=== PATIENT | male | born 1960 | race Caucasian/White ===

== ENCOUNTER 2018-12-25 20:22 | Observation (INO) | payer BC, OTHER ==
--- OUTSIDE RECORDS SUMMARY | 2018-12-25 20:23 | XMS REPORT ---
:1960 Author Organization eClinicalWorks Care Team Providers Name Role Phone Dony Langfordh Provider Role Unavailable Allergies, Adverse Reactions, Alerts Substance Reaction Event Type N.K.D.A. 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 Problem Herpes labialis B00.1 Active Problem Gastro-esophageal reflux disease K21.9 Active without esophagitis Problem Schatzki's ring Q39.4 Active Problem Asthma J45.909 Active Problem Allergic rhinitis, seasonal J30.2 Active Problem Ventral hernia K43.9 Active Problem Hyperlipidemia, mixed E78.2 Active Problem Inguinal hernia recurrent K40.91 Active unilateral Assessment Elevated BP without diagnosis of R03.0 Active hypertension Assessment Herpes labialis B00.1 Active Assessment Asthma J45.909 Active Assessment Esophageal hiatus hernia K44.9 Active Assessment Hyperlipidemia, mixed E78.2 Active Assessment Gastro-esophageal reflux disease K21.9 Active without esophagitis Medications Medication Code Code Instructions Start End Status Dosage System Date Date Symbicort [facility] [id number] 160-4.5 MCG/ACT Active 2 puffs Inhalation Twice a day Vitamin C [facility] [id number] Active not defined Centrum Men [facility] [id number] Active not defined Ventolin HFA [facility] [id number] 90 MCG/ACT Active 2 puffs as Inhalation every needed 6 hrs Results No Known Results Summary Purpose eClinicalWorks Submission
--- NOTE | 2018-12-25 20:56 | RAD REPORT ---
EXAM DESCRIPTION: CT - Head Brain Wo Cont - 12/25/2018 8:41 pm CLINICAL HISTORY: Left-sided facial numbness COMPARISON: None. TECHNIQUE: Axial 5 mm thick images of the head were obtained without IV contrast. All CT scans are performed using dose optimization technique as appropriate and may include automated exposure control or mA/KV adjustment according to patient size. FINDINGS: No intracranial hemorrhage, mass, edema or shift of mid-line structures. No acute infarcti on changes seen. No abnormal extra-axial fluid collections. Ventricles are normal. Mastoid air cells and visualized portions of the paranasal sinuses are clear. No acute bony findings. Postsurgical changes are noted to the right-sided skull. No history provided as to the nature of the injury or surgical procedure performed. IMPRESSION: Negative non-contrast CT head examination for acute intracranial finding. Postsurgical changes to the lateral stall frontal parietal junction. No underlying changes of the bra in parenchyma. Reason for the procedure performed is unknown.
[2018-12-25 21:54] LABS: Absolute Lymphocytes (CBC) 1.4 K/uL (0.7-4.9); Absolute Monocytes 0.7 K/uL (0.1-1.3); Absolute Neutrophil 3.7 K/uL (1.8-8.0); Basophils % 0.9 % (0-1.3); Eosinophils % 3.5 % (0-4.4); Hematocrit 43.1 % (39.6-49.0); Lymphocytes % 22.9 % (15.3-44.8); MPV 8.1 fL (7.6-11.3); Monocytes % 11.8 % (3.3-12.3); RBC Red Blood Cell Count 5.06 M/uL (4.33-5.43)
[2018-12-25 22:13] LABS: Protime INR 1.36
[2018-12-25 22:26] LABS: ALT/SGPT 27 U/L (12-78); AST/SGOT 16 U/L (15-37); Albumin 3.7 g/dL (3.4-5.0); Alkaline Phosphatase 75 U/L (45-117); BUN Blood Urea Nitrogen 11 mg/dL (7-18); Bicarbonate 27 mmol/L (21-32); Bilirubin Direct 0.1 mg/dL (0-0.2); Bilirubin Total 0.4 mg/dL (0.2-1.0); Glucose Level 110 mg/dL (74-106); Magnesium 2.4 mg/dL (1.8-2.4); NT PRO-BNP 24 pg/mL (<125); Potassium 3.2 mmol/L (3.5-5.1); Protein, Total 7.2 g/dL (6.4-8.2); Sodium Level 141 mmol/L (136-145); Troponin (Emerg Dept Use Only) < 0.02 ng/mL (0.0-0.045)
[2018-12-25] MEDS ORDERED: POTASSIUM CL SA 10 MEQ TAB PO ONE (23:11)
--- NOTE | 2018-12-26 00:50 | ER ---
Nurse's Notes [facility] Name: Ashwin Engel Age: 58 yrs Sex: Male : 1960 Arrival Date: 12/25/2018 Time: 20:23 Bed 24 Private MD: Diagnosis: Transient cerebral ischemic attack, unspecified Presentation: 12/25 20:25 Presenting complaint: Patient states: he has been having some numbness to the L side of aa1 his face that started around 1000 am this morning. 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 Denies any other deficits or symptoms. Transition of care: patient was not received from another setting of care. Onset of symptoms was December 25, 2018 at 10:00. Risk Assessment: Do you want to hurt yourself or someone else? Patient reports no desire to harm self or others. Initial Sepsis Screen: Does the patient meet any 2 criteria? No. Patient's initial sepsis screen is negative. Does the patient have a suspected source of infection? No. Patient's initial sepsis screen is negative. Care prior to arrival: None. 20:25 Method Of Arrival: Ambulatory aa1 20:25 Acuity: CAESAR 2 aa1 Triage Assessment: 20:29 General: Appears in no apparent distress. comfortable, Behavior is calm, cooperative, aa1 appropriate for age. Pain: Denies pain. 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 - Social history:: Smoking status: Patient/guardian denies using tobacco. - Ebola Screening: : No symptoms or risks identified at this time. Screenin:31 Abuse screen: Denies threats or abuse. Denies injuries from another. Nutritional aj screening: No deficits noted. Tuberculosis screening: No symptoms or risk factors identified. Fall Risk None identified. Assessment: 20:56 General: Appears in no apparent distress. comfortable, Behavior is calm, cooperative, aj appropriate for age. Neuro: Level of Consciousness is awake, alert, obeys commands, Oriented to person, place, time, situation, Appropriate for age Cab Station Attendant are equal bilaterally Moves all extremities. Full function Gait is steady, Speech Appears slow. some droop around left eye. Pupils are Numbness in left cheek, left eye and left zygomatic area Reports headache. Respiratory: Airway is patent Respiratory effort is even, unlabored, Respiratory pattern is regular, symmetrical. Derm: Skin is intact, is healthy with good turgor, Skin is pink, warm \T\ dry. normal. 22:20 Reassessment: Patient appears in no apparent distress at this time. Patient and/or ao family updated on plan of care and expected duration. Pain level reassessed. Patient is alert, oriented x 3, equal unlabored respirations, skin warm/dry/pink. Patient under no distress. Pt AOX4. 12/26 00:47 Reassessment: Per ANTON Marshall patient to stay in the hospital with a consult with Dr javier Zuñiga. ANTON Marshall has spoken to Dr Zuñiga. 00:49 Reassessment: Patient appears in no apparent distress at this time. Patient and/or ao family updated on plan of care and expected duration. Pain level reassessed. Patient is alert, oriented x 3, equal unlabored respirations, skin warm/dry/pink. Vital Signs: 12/25 20:29 BP 156 / 102; Pulse 86; Resp 16; Temp 97.8; Pulse Ox 95% on R/A; Weight 90.72 kg; aa1 Height 5 ft. 11 in. (180.34 cm); Pain 0/10; 21:57 BP 144 / 100; Pulse 65; Resp 19; Pulse Ox 97% on R/A; aj 12/26 00:46 BP 131 / 91; Pulse 64; Resp 16; Temp 97.6(O); Pulse Ox 97% on R/A; ao 01:42 BP 147 / 102; Pulse 68; Resp 16; Pulse Ox 99% on R/A; ao 12/25 20:29 Body Mass Index 27.89 (90.72 kg, 180.34 cm) aa1 NIH Stroke Scale Scores: 12/25 22:22 NIHSS Score: 1 jr8 ED Course: 20:23 Patient arrived in ED. mr 20:27 Triage completed. aa1 20:29 Arm band placed on left wrist. Patient placed in an exam room, on a stretcher. aa1 20:32 Iveth Pedraza, RN is Primary Nurse. aj 20:[address] vm2 20:41 CT Head Brain wo Cont In Process Unspecified. EDMS 20:41 CT completed. Patient tolerated procedure well. Patient moved back from CT. nj 20:50 Rolando Asher PA is PHCP. jr8 20:51 Johnathan Barbosa MD is Attending Physician. jr8 21:18 Radiology exam delayed due to lab results not completed at this time. (BUN/Creatinine). vm2 21:31 Patient has correct armband on for positive identification. awake overnight monitor on. Pulse aj ox on. NIBP on. 21:31 Inserted saline lock: 18 gauge in right forearm, using aseptic technique. Blood aj collected. 21:53 Basic Metabolic Panel Sent. aj 21:54 CBC with Diff Sent. aj 21:54 LFT's Sent. aj 21:54 Magnesium Sent. aj 21:54 NT PRO-BNP Sent. aj 21:54 PT-INR Sent. aj 22:[address] vm2 22:[address] In Process Unspecified. EDMS 05 00:49 Jenny Daniels MD is Hospitalizing Provider. jr8 01:58 No provider procedures requiring assistance completed. Patient admitted, IV remains in ao place. Administered Medications: 12/25 23:03 Drug: Potassium Chloride 40 mEq Route: PO; ao 12/26 01:57 Follow up: Response: No adverse reaction ao 00:54 Drug: Aspirin 81 mg Route: PO; ao 01:57 Follow up: Response: No adverse reaction ao 00:54 Drug: PlaVIX 75 mg Route: PO; ao 01:56 Follow up: Response: No adverse reaction ao Outcome: 00:50 Decision to Hospitalize by Provider. jr8 01:58 Admitted to Tele accompanied by nurse, room 421, with chart, Report called to javier Brosusard RN 01:58 Condition: stable 01:58 Instructed on the need for admit. 02:13 Patient left the ED. ao NIH Stroke Scale - NIH Stroke Score Date: 12/25/2018 Time: 22:22 Total Score = 1 1a. Level of Consciousness (LOC) - 0(Alert) 1b. Level of Consciousness (LOC) (Year \T\ Age) - 0(Both) 1c. LOC Commands (Open \T\ Closes Eyes/Cashier Or Checker Stock Clerk) - 0(Both) 2. Best Gaze (Lateral Gaze Paresis) - 0(Normal) 3. Visual Field Loss - 0(No visual loss) 4. Facial Palsy - 0(Normal) 5a. Left Arm: Motor (10-second hold) - 0(No drift) 5b. Right Arm: Motor (10-second hold) - 0(No drift) 6a. Left Leg: Motor (5-second hold - always test supine) - 0(No drift) 6b. Right Leg: Motor (5-second hold - always test supine) - 0(No drift) 7. Limb Ataxia (finger/nose \T\ heel/queen - test with eyes open) - 0(Absent) 8. Sensory Loss (pinprick arms/legs/face) - 1(Mild to moderate loss) 9. Best Language: Aphasia (description/naming/reading) - 0(No aphasia) 10. Dysarthria (speech clarity - read or repeat words) - 0(Normal) 11. Extinction and Inattention (visual/tactile/auditory/spatial/personal) - 0(No abnormality) Initials: jr8 Signatures: Dispatcher [employer] Brenda Hope RN RN aa1 Myers, Amanda, RN RN aj Rivera, Shannen Asher, ANTON Marshall jr8 Wilber Shaw RN RN ao Jordan, Pavel burrows SaucedaTila aguilar [facility]
--- NOTE | 2018-12-26 00:50 | EDPHYS ---
Physician Documentation [facility] Name: Ashwin Engel Age: 58 yrs Sex: Male : 1960 Arrival Date: 12/25/2018 Time: 20:23 Bed 24 Private MD: ED Physician Johnathan Barbosa HPI: 12/25 22:22 This 58 yrs old Male presents to ER via Ambulatory with complaints of jr8 Numbness Of Face. 22:22 The patient presents to the emergency department with paresthesias of the left side of jr8 the face, that is mild. Onset: The symptoms/episode began/occurred acutely, today, at 10:00. Context: occurred at home, occurred while the patient was at rest. Associated signs and symptoms: Pertinent positives: headache. Severity of symptoms: At their worst the symptoms were mild in the emergency department the symptoms are unchanged. Patient's baseline: Neuro: alert and fully oriented, Motor: no deficits, Ambulation: walks without assistance, Speech: normal. Current symptoms: headache, that is mild. It is unknown whether or not the patient has had similar symptoms in the past. The patient has not recently seen a physician. Patient stated that he feels like he is in a fog and slow. Started to feel numbness to left face and odd feeling in left arm. Headache behind eyes. History of bells palsy in past but stated that this feels different. . 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 - Social history:: Smoking status: Patient/guardian denies using tobacco. - Ebola Screening: : No symptoms or risks identified at this time. ROS: 22:22 Eyes: Negative for injury, pain, redness, and discharge, ENT: Negative for injury, jr8 pain, and discharge, Neck: Negative for injury, pain, and swelling, Cardiovascular: Negative for chest pain, palpitations, and edema, Respiratory: Negative for shortness of breath, cough, wheezing, and pleuritic chest pain, Abdomen/GI: Negative for abdominal pain, nausea, vomiting, diarrhea, and constipation, Back: Negative for injury and pain, MS/Extremity: Negative for injury and deformity, Skin: Negative for injury, rash, and discoloration. 22:22 Neuro: Positive for headache, numbness, speech changes. Exam: 22:22 Eyes: Pupils equal round and reactive to light, extra-ocular motions intact. Lids and jr8 lashes normal. Conjunctiva and sclera are non-icteric and not injected. Cornea within normal limits. Periorbital areas with no swelling, redness, or edema. ENT: Nares patent. No nasal discharge, no septal abnormalities noted. Tympanic membranes are normal and external auditory canals are clear. Oropharynx with no redness, swelling, or masses, exudates, or evidence of obstruction, uvula midline. Mucous membranes moist. Neck: Trachea midline, no thyromegaly or masses palpated, and no cervical lymphadenopathy. Supple, full range of motion without nuchal rigidity, or vertebral point tenderness. No Meningismus. Cardiovascular: Regular rate and rhythm with a normal S1 and S2. No gallops, murmurs, or rubs. Normal PMI, no JVD. No pulse deficits. Respiratory: Lungs have equal breath sounds bilaterally, clear to auscultation and percussion. No rales, rhonchi or wheezes noted. No increased work of breathing, no retractions or nasal flaring. Abdomen/GI: Soft, non-tender, with normal bowel sounds. No distension or tympany. No guarding or rebound. No evidence of tenderness throughout. Back: No spinal tenderness. No costovertebral tenderness. Full range of motion. Skin: Warm, dry with normal turgor. Normal color with no rashes, no lesions, and no evidence of cellulitis. MS/ Extremity: Pulses equal, no cyanosis. Neurovascular intact. Full, normal range of motion. 22:22 Neuro: Orientation: to person, place \T\ time. Mentation: is normal, Memory: is normal, immediate memory is intact, recent memory is intact, remote memory is intact, Cranial nerves: CN I not tested, CN II- XII are normal as tested, extraocular movements are intact, Facial palsy and sensory deficits are absent. no gross hearing deficit,. Nystagmus is absent. Speech is slowed, Tongue strength is normal, Cerebellar function: normal finger to nose testing, heel to queen testing is normal, Motor: moves all fours, strength is normal, strength is 5/5 in all extremities, Sensation: numbness, that is mild, of the left face, Gait: is steady, at a normal pace, without difficulty, seizure activity, is not displayed by the patient, Abnormal movements: there are no abnormal movements. Vital Signs: 20:29 BP 156 / 102; Pulse 86; Resp 16; Temp 97.8; Pulse Ox 95% on R/A; Weight 90.72 kg; aa1 Height 5 ft. 11 in. (180.34 cm); Pain 0/10; 21:57 BP 144 / 100; Pulse 65; Resp 19; Pulse Ox 97% on R/A; aj 12/26 00:46 BP 131 / 91; Pulse 64; Resp 16; Temp 97.6(O); Pulse Ox 97% on R/A; ao 01:42 BP 147 / 102; Pulse 68; Resp 16; Pulse Ox 99% on R/A; ao 12/25 20:29 Body Mass Index 27.89 (90.72 kg, 180.34 cm) aa1 NIH Stroke Scale Scores: 12/25 22:22 NIHSS Score: 1 [facility] MDM: 20:53 Patient medically screened. 12/26 00:49 Data reviewed: vital signs, nurses notes, lab test result(s), EKG, radiologic studies, [facility] CT scan. Data interpreted: Pulse oximetry: on room air is 97 %. Interpretation: normal. Counseling: I had a detailed discussion with the patient and/or guardian regarding: the historical points, exam findings, and any diagnostic results supporting the discharge/admit diagnosis, lab results, radiology results, the need for further work-up and treatment in the hospital. Physician consultation: Jenny Daniels MD was called at 00:49, was contacted at 00:49, regarding admission, to the telemetry unit. consult, patient's condition, and will see patient. 12/25 21:13 Order name: Basic Metabolic Panel [facility] 12/25 21:13 Order name: CBC with Diff; Complete Time: 22:06 [facility] 12/25 21:13 Order name: LFT's; Complete Time: 22:29 [facility] 12/25 21:13 Order name: Magnesium; Complete Time: 22:29 [facility] 12/25 21:13 Order name: NT PRO-BNP; Complete Time: 22:29 [facility] 12/25 21:13 Order name: PT-INR; Complete Time: 22:41 [facility] 12/25 20:30 Order name: CT Head Brain wo Cont; Complete Time: 21:13 aa1 12/25 21:13 Order name: Troponin (emerg Dept Use Only); Complete Time: 22:29 [facility] 12/25 21:14 Order name: Basic Metabolic Panel; Complete Time: 22:29 [facility] 12/25 21:14 Order name: Head Angio CT [facility] 12/26 01:16 Order name: Comprehensive Metabolic Panel [facility] 12/26 01:16 Order name: Lipid Profile [facility] 12/26 01:16 Order name: Magnesium [facility] 12/26 01:16 Order name: CBC with Automated Diff [facility] 12/25 21:13 Order name: EKG; Complete Time: 21:14 [facility] 12/25 21:13 Order name: Cardiac monitoring; Complete Time: 21:31 [facility] 12/25 21:13 Order name: EKG - Nurse/Tech; Complete Time: 21:53 [facility] 12/25 21:13 Order name: IV Saline Lock; Complete Time: 21:31 [facility] 12/25 21:13 Order name: Labs collected and sent; Complete Time: 21:53 [facility] 12/25 21:13 Order name: O2 Per Protocol; Complete Time: 21:53 [facility] 12/25 21:13 Order name: O2 Sat Monitoring; Complete Time: 21:53 [facility] 12/26 01:16 Order name: Physical Therapy Consult [facility] 12/26 01:16 Order name: Speech Therapy Consult [facility] 12/26 01:16 Order name: Echo with Doppler [facility] 12/26 01:16 Order name: EKG Electrocardiogram [facility] 12/26 01:16 Order name: Stroke Protocol [facility] 12/26 01:16 Order name: Chest Pa And Lat (2 Views) [facility] Administered Medications: 12/25 23:03 Drug: Potassium Chloride 40 mEq Route: PO; ao 12/26 01:57 Follow up: Response: No adverse reaction ao 00:54 Drug: Aspirin 81 mg Route: PO; ao 01:57 Follow up: Response: No adverse reaction ao 00:54 Drug: PlaVIX 75 mg Route: PO; ao 01:56 Follow up: Response: No adverse reaction ao Disposition: 02:58 Co-signature as Attending Physician, Johnathan Barbosa MD. pkl Disposition: 12/26/18 00:50 Hospitalization ordered by Jenny Daniels for Observation. Preliminary diagnosis is Transient cerebral ischemic attack, unspecified. - Bed requested for Telemetry/MedSurg (observation). - Status is Observation. ao - Condition is Stable. - Problem is new. - Symptoms have improved. UTI on Admission? No NIH Stroke Scale - NIH Stroke Score Date: 12/25/2018 Time: 22:22 Total Score = 1 1a. Level of Consciousness (LOC) - 0(Alert) 1b. Level of Consciousness (LOC) (Year \T\ Age) - 0(Both) 1c. LOC Commands (Open \T\ Closes Eyes/Call Center Coordinator) - 0(Both) 2. Best Gaze (Lateral Gaze Paresis) - 0(Normal) 3. Visual Field Loss - 0(No visual loss) 4. Facial Palsy - 0(Normal) 5a. Left Arm: Motor (10-second hold) - 0(No drift) 5b. Right Arm: Motor (10-second hold) - 0(No drift) 6a. Left Leg: Motor (5-second hold - always test supine) - 0(No drift) 6b. Right Leg: Motor (5-second hold - always test supine) - 0(No drift) 7. Limb Ataxia (finger/nose \T\ heel/queen - test with eyes open) - 0(Absent) 8. Sensory Loss (pinprick arms/legs/face) - 1(Mild to moderate loss) 9. Best Language: Aphasia (description/naming/reading) - 0(No aphasia) 10. Dysarthria (speech clarity - read or repeat words) - 0(Normal) 11. Extinction and Inattention (visual/tactile/auditory/spatial/personal) - 0(No abnormality) Initials: jrEnrique Signatures: Dispatcher [employer] Brenda Hope RN RN aa1 Johnathan Barbosa MD MD pkRolando Joseph PA PA jr8 Irasema Ann RN RN cg Ortiz, Alex RN RN ao Corrections: (The following items were deleted from the chart) 01:32 00:50 Hospitalization Ordered by Jenny Daniels MD for Observation. Preliminary cg diagnosis is Transient cerebral ischemic attack, unspecified. Bed requested for Telemetry/MedSurg (observation). Status is Observation. Condition is Stable. Problem is new. Symptoms have improved. UTI on Admission? No. jr8 02:13 01:32 12/26/2018 00:50 Hospitalization Ordered by Jenny Daniels MD for ao Observation. Preliminary diagnosis is Transient cerebral ischemic attack, unspecified. Bed requested for Telemetry/MedSurg (observation). Status is Observation. Condition is Stable. Problem is new. Symptoms have improved. UTI on Admission? No. cg
[2018-12-26] MEDS ORDERED: ASPIRIN 81 MG CHEWABLE TABLET ONE (01:05)
[2018-12-26] MEDS ORDERED: CLOPIDOGREL 75 MG TABLET ONE (01:05)
[2018-12-26] MEDS ORDERED: ACETAMINOPHEN 500 MG TAB PO PRN (01:10)
[2018-12-26] MEDS ORDERED: ONDANSETRON 4 MG/2 ML VIAL IV PRN (01:10)
[2018-12-26] MEDS ORDERED: NA CHLORIDE 0.9% 1,000 ML IV SCH (02:00)
[2018-12-26 04:33] LABS: Urine Appearance CLEAR; Urine Bilirubin NEGATIVE (NEG); Urine Blood NEGATIVE (NEG); Urine Color YELLOW; Urine Glucose NEGATIVE (NEG); Urine Protein NEGATIVE (NEG); Urine Specific Gravity >=1.030 (1.005-1.030); Urine Urobilinogen 0.2 mg/dL (0.2-1.0); Urine pH 5.5 (5.0-7.0)
[2018-12-26 04:39] LABS: Urine Microscopic Reflex NO UMIC
[2018-12-26 05:51] LABS: Absolute Lymphocytes (CBC) 1.1 K/uL (0.7-4.9); Absolute Monocytes 0.7 K/uL (0.1-1.3); Absolute Neutrophil 2.9 K/uL (1.8-8.0); Basophils % 0.8 % (0-1.3); Eosinophils % 4.4 % (0-4.4); Lymphocytes % 22.1 % (15.3-44.8); MPV 7.8 fL (7.6-11.3); RBC Red Blood Cell Count 4.96 M/uL (4.33-5.43)
[2018-12-26 05:55] LABS: Albumin 3.6 g/dL (3.4-5.0); Bilirubin Total 0.4 mg/dL (0.2-1.0); Magnesium 2.4 mg/dL (1.8-2.4); Potassium 4.7 mmol/L (3.5-5.1); Protein, Total 6.7 g/dL (6.4-8.2)
--- NOTE | 2018-12-26 06:06 | EKG ---
Test Date: 2018-12-25 Test Time: 21:38:32 [employer]: [employer] MEASUREMENT RESULTS: Intervals: Rate: 63 CT: 156 QRSD: 84 QT: 380 QTc: 388 [place]: P: 36 CT: 156 QRS: -2 T: 57 INTERPRETIVE STATEMENTS: Normal sinus rhythm Normal ECG Compared to ECG 02/25/2013 19:03:10 Sinus arrhythmia no longer present Electronically Signed On 12-26-18 06:05:34 CDT by Hossein Martell
--- NOTE | 2018-12-26 08:34 | RAD REPORT ---
EXAM DESCRIPTION: MRI - Brain W/Wo Cont - 12/26/2018 8:17 am CLINICAL HISTORY: Slurred speech, left-sided facial numbness, left arm weakness and numbness, stroke -like symptoms COMPARISON: CT imaging December 25 TECHNIQUE: Sagittal and axial T1-weighted images were obtained. Axial PD/heavily T2-weighted and T2- FLAIR images were obtained along with axial DWI/ADC mapping sequences. Coronal heavily T2 weighted s equence obtained. Axial and coronal post-contrast T1-weighted images were also obtained. A 17 ml Mul tihance contrast following utilized. FINDINGS: No intracranial hemorrhage, mass or acute infarction. There is no edema or shift of midli ne structures. No extra-axial fluid collections. Arnold-matter/white matter junction is preserved. Sig nal voids are seen as a normal finding in the major intracranial vessels. A few punctate areas of chr onic ischemic change noted scattered in the cerebral white matter. No measurable atrophy. Ventricles are normal. No globe or orbital content abnormality identified. No sella or supra sella abnormality. Post-contrast images show normal enhancement. No dural thickening. Mastoid air cells and paranasal sinuses are clear. No acute bone finding. There are postsurgical changes in the superior right frontal and parietal bone junction. Nature of the surgical procedure is unknown. Underlying brain parenchyma and dura show no suspicious or unexpected findings. IMPRESSION: No infarction changes are present. No acute intracranial process seen. Minimal chronic ischemic change in the cerebral white matter.
--- NOTE | 2018-12-26 08:37 | RAD REPORT ---
EXAM DESCRIPTION: MRI - MRA Head Wo Cont - 12/26/2018 8:16 am CLINICAL HISTORY: Left face and arm numbness and weakness, stroke-like symptoms COMPARISON: MR brain same date TECHNIQUE: Axial and coronal 3D [id number] image acquisition was performed. 3D rotational images were generated with source and reconstruction images reviewed. Maximum intensity projection protocol utilized. Horizontal and vertical axis rotational views generated using MIP protocol. FINDINGS: No aneurysm or vascular malformation. No stenosis or occlusion identifiable. There are no vasculitis findings or other focal or diffuse vascular process. Patient has normal variant persistent origin of the right posterior cerebral artery basilar artery is normal. IMPRESSION: MRA Head imaging shows no significant or suspicious finding.
--- NOTE | 2018-12-26 08:40 | RAD REPORT ---
EXAM DESCRIPTION: MRI - MRA Neck W/Wo Cont - 12/26/2018 8:17 am CLINICAL HISTORY: Left-sided face and arm weakness, stroke-like symptoms COMPARISON: MRI brain same date TECHNIQUE: MR angiography of the cervical vasculature performed. Coronal imaging plane acquisition u tilized. A 17 mL MultiHance contrast volume was utilized. Coronal reformatted images were generated a nd reviewed. Vertical axis 3D rotational projections obtained using maximum intensity projection prot ocol. FINDINGS: Aortic arch is 3 vessel. No stenosis or focal abnormality at the great vessel origins. Iftikhar tebral artery origins are also unremarkable. Left vertebral artery is dominant. Bilateral subclavian arteries are clear. No dissection or stenosis of either common carotid artery. Internal carotid arteries are also without stenosis, dissection or focal abnormality. No vascular malformation. IMPRESSION: Negative MRA neck examination.
--- NOTE | 2018-12-26 08:46 | RAD REPORT ---
EXAM DESCRIPTION: RAD - Chest Pa And Lat (2 Views) - 12/26/2018 8:40 am CLINICAL HISTORY: Shortness of breath, Stroke protocol chest film COMPARISON: August 2015 TECHNIQUE: PA and lateral views of the chest were obtained. FINDINGS: The lungs are clear of focal infiltrate, mass, failure or volume overload. Patient has a m ild chronic interstitial pattern that matches comparison. Heart size is normal and central vasculat ure is within normal limits. No pleural effusion or pneumothorax seen. No acute bony finding noted. No aortic abnormality. IMPRESSION: No acute cardiopulmonary process. Chronic interstitial lung pattern matches comparison.
[2018-12-26] MEDS ORDERED: PANTOPRAZOLE 40MG TABLET PO SCH (09:00)
[2018-12-26] MEDS ORDERED: ASPIRIN EC 81 MG TAB PO SCH (09:00)
[2018-12-26] MEDS ORDERED: CLOPIDOGREL 75 MG TABLET PO SCH (09:00)
[2018-12-26] MEDS ORDERED: HOME MED 1 EA UNK (Budesonide/Formoterol Fumarate [Symbicort 160-4.5 Mcg Inhaler] 1 PUFF) IH SCH (09:00)
[2018-12-26] MEDS ORDERED: ASCORBIC ACID 500 MG TABLET PO SCH (09:00)
[2018-12-26] MEDS ORDERED: MULTIVIT W/ MINERAL TAB PO SCH (09:00)
--- NOTE | 2018-12-26 10:47 | RAD REPORT ---
EXAM DESCRIPTION: CT - Head angio - 12/26/2018 2:20 am CLINICAL HISTORY: Orbital pain. Numbness. TECHNIQUE: Following the administration of intravenous contrast, thin section axial CT angiography i mages of the head were obtained. Coronal and sagittal reformatted images were generated. This exa m was performed according to our departmental dose-optimization program, which includes automated exp osure control, adjustment of the mA and/or kV according to patient size and/or use of iterative recon struction technique. INTRAVENOUS CONTRAST: Not documented. Please refer to medical record. COMPARISON: None FINDINGS: CTA BRAIN: The internal carotid arteries are unremarkable. The JAMI and MCA branches have a normal course and caliber. An anterior communicating artery is seen . No definite posterior communicating arteries are visualized. There is no evidence of high-grade stenosis or aneurysm in the anterior circulation. The basilar and vertebral arteries have a normal course and caliber. The left vertebral artery is d ominant. The CLICKER OPERATOR and bilateral SCA branches show no focal abnormalities. The origins of the PICAs are visualized. There is no evidence of high-grade stenosis or aneurysm in the posterior circulation . IMPRESSION: 1. Normal study. Electronically signed by: Serg Beth MD 12/25/2018 11:02 PM CDT Due to temporary technical issues with the PACS/Fluency reporting system, reports are being signed by the in house radiologist as a courtesy to ensure prompt reporting. The interpreting radiologist is f ully responsible for the content of the report.
--- NOTE | 2018-12-26 14:28 | P.SSS ---
Patient History Date of Service: 12/26/18 History of Present Illness: 58-year-old male with significant past medical history of CVA, Salazar's palsy who presented to the ED complaining of having left-sided facial numbness that was sepsis clinically admitted to the hospital for workup of TIA versus CVA. Please refer to HPI for further information regarding history of present illness Allergies No Known Allergies Allergy (Verified 12/26/18 02:38) Home Medications: Ascorbic Acid [Vitamin C] 1 tab PO DAILY 12/26/18 Aspirin 81 mg PO DAILY #30 tab.chew 12/26/18 Atorvastatin Calcium 40 mg PO DAILY #30 tablet 12/26/18 Budesonide/Formoterol Fumarate [Symbicort 160-4.5 Mcg Inhaler] 1 puff IH DAILY 12/26/18 Multivit-Min/FA/Lycopen/Lutein [Centrum Silver Tablet] 1 tab PO DAILY 12/26/18 Omeprazole Magnesium [Prilosec Otc] 1 tab PO DAILY 12/26/18 - Past Medical/Surgical History Has patient received pneumonia vaccine in the past: Yes Diabetic: No -: [place] Palsy -: Asthma -: Colonoscopy -: Factor 7 deficiency -: Hiatal Hernia -: Inguinal Hernia -: Right Knee Sx -: Ulnar Valve transposition -: non malignant brain tumor removed - Family History Mother -: Hypertension Father -: Hypertension - Social History Smoking Status: Never smoker Alcohol use: No CD- Drugs: No Caffeine use: Yes Place of Residence: Home Review of Systems 10-point ROS is otherwise unremarkable Physical Examination - Vital Signs Temperature: 98 F Blood Pressure: 139/83 Pulse: 72 Respirations: 18 Pulse Ox (%): 96 - Physical Exam General: Alert, In no apparent distress HEENT: Atraumatic, PERRLA, Mucous membr. moist/pink, EOMI, Sclerae nonicteric Neck: Supple, 2+ carotid pulse no bruit, No LAD, Without JVD or thyroid abnormality Respiratory: Clear to auscultation bilaterally, Normal air movement Cardiovascular: Regular rate/rhythm, Normal S1 S2 Gastrointestinal: Normal bowel sounds, No tenderness Musculoskeletal: No tenderness Integumentary: No rashes Neurological: Normal gait, Normal speech, Normal strength at 5/5 x4 extr, Normal tone, Normal affect Lymphatics: No axilla or inguinal lymphadenopathy - Studies Laboratory Data (last 24 hrs) 12/25/18 21:29: PT 15.9 H, INR 1.36 12/25/18 21:29: WBC 6.1, Hgb 14.9, Hct 43.1, Plt Count 310 12/25/18 21:29: Sodium 141, Potassium 3.2 L, BUN 11, Creatinine 1.23, Glucose 110 H, Magnesium 2.4, Total Bilirubin 0.4, AST 16, ALT 27, Alkaline Phosphatase 75 - Diagnosis (Problem(s)) (1) Facial numbness Status: Resolved (2) H/O Salazar's palsy Status: Chronic (3) History of CVA (cerebrovascular accident) Status: Chronic Treatment Summary: Patient was initially admitted to the hospital for CVA rule out as his presenting complaint was facial numbness. Patient had extensive workup done here in the hospital which included brain MRI neck MRA and carotid ultrasound and echocardiogram which were all within normal limits. No acute CVA was noted. Patient did have some chronic ischemic changes on the brain MRI however no acute abnormality was noted. At that time patient was working with physical therapy and occupational therapy along with speech therapy followup which she did well overall. Patient then was discharged home under stable condition was asked to follow up with primary care provider along with Neurology in about 1-2 days post discharge. Patient was asked to take aspirin and Lipitor on discharge. Neurology was initially consulted here in the hospital recommended the patient can be seen outpatient. Patient's symptoms was most likely secondary to his Salazar's palsy recently getting worse with upper respiratory infection. Patient on discharge had complete resolution of his symptoms and thus was discharged home under stable condition. - Disposition Disposition: ROUTINE DISCHARGE Condition: GOOD Patient Discharge Instructions: F.u with PCP and Neurology in 1 to 2 week post discharge. New medication. Asa 81mg. Atorvastatin 40mg daily Diet: Regular Activity: Ad olamide
[2018-12-26] MEDS ORDERED: ENOXAPARIN 40 MG/0.4 ML SQ SCH (17:00)
--- NOTE | 2018-12-26 20:38 | P.HP ---
Certification for Inpatient Patient admitted to: Observation With expected LOS: <2 Midnights Patient will require the following post-hospital care: None Practitioner: I am a practitioner with admitting privileges, knowledge of patient current condition, hospital course, and medical plan of care. Services: Services provided to patient in accordance with Admission requirements found in Title 42 Section 412.3 of the Code of Federal Regulations Patient History Date of Service: 12/26/18 Reason for admission: left-sided paresthesias involving the face & the upper and lower extremity History of Present Illness: Patient is a 58-year-old gentleman who came into the hospital with paresthesias of the left side of the face. He said he felt like this was his Salazar's palsy that he had over 20 years ago. He also had left-sided paresthesias of the upper extremity. Patient came to the hospital for further evaluation. In the emergency room his initial CT scan was negative. Patient also had lab studies which were negative. Patient will be admitted to the hospital for further evaluation and he will be worked up for a possible CVA. Allergies No Known Allergies Allergy (Verified 12/26/18 02:38) Home Medications: Ascorbic Acid [Vitamin C] 1 tab PO DAILY 12/26/18 Aspirin 81 mg PO DAILY #30 tab.chew 12/26/18 Atorvastatin Calcium 40 mg PO DAILY #30 tablet 12/26/18 Budesonide/Formoterol Fumarate [Symbicort 160-4.5 Mcg Inhaler] 1 puff IH DAILY 12/26/18 Multivit-Min/FA/Lycopen/Lutein [Centrum Silver Tablet] 1 tab PO DAILY 12/26/18 Omeprazole Magnesium [Prilosec Otc] 1 tab PO DAILY 12/26/18 - Past Medical/Surgical History Has patient received pneumonia vaccine in the past: Yes Diabetic: No -: [place] Palsy -: Asthma -: Colonoscopy -: Factor 7 deficiency -: Hiatal Hernia -: Inguinal Hernia -: Right Knee Sx -: Ulnar Valve transposition -: non malignant brain tumor removed - Family History Mother Medical History: Hypertension Father Medical History: Hypertension - Social History Smoking Status: Never smoker Alcohol use: No CD- Drugs: No Caffeine use: Yes Place of Residence: Home Review of Systems 10-point ROS is otherwise unremarkable Physical Examination - Vital Signs Temperature: 98 F Blood Pressure: 139/83 Pulse: 72 Respirations: 18 Pulse Ox (%): 96 - Physical Exam General: Alert, In no apparent distress, Oriented x3 HEENT: Atraumatic, PERRLA, Mucous membr. moist/pink, EOMI, Sclerae nonicteric Neck: Supple, 2+ carotid pulse no bruit, No LAD, Without JVD or thyroid abnormality Respiratory: Clear to auscultation bilaterally, Normal air movement Cardiovascular: Regular rate/rhythm, Normal S1 S2, No murmurs Gastrointestinal: Normal bowel sounds, Soft and benign, Non-distended, No tenderness Musculoskeletal: No clubbing, No swelling, No tenderness Integumentary: No rashes Neurological: Normal gait, Normal speech, Normal strength at 5/5 x4 extr, Normal tone, Sensation intact, Cranial nerves 3-12 intact, Normal affect Lymphatics: No axilla or inguinal lymphadenopathy - Studies Laboratory Data (last 24 hrs) 12/25/18 21:29: PT 15.9 H, INR 1.36 12/25/18 21:29: WBC 6.1, Hgb 14.9, Hct 43.1, Plt Count 310 12/25/18 21:29: Sodium 141, Potassium 3.2 L, BUN 11, Creatinine 1.23, Glucose 110 H, Magnesium 2.4, Total Bilirubin 0.4, AST 16, ALT 27, Alkaline Phosphatase 75 Assessment & Plan - Problems (Diagnosis) (1) Paresthesia of left upper and lower extremity Status: Acute (2) H/O Salazar's palsy Status: Chronic (3) Facial numbness Status: Resolved - Plan 1. MRI of the brain 2. Echocardiogram and carotid Doppler 3. Anti-platelet therapy and statin therapy 4. Neurology consultation 5. Physical therapy/occupational therapy/speech therapy evaluation 6. Modified barium swallow study 7. DVT prophylaxis Discharge Plan: Home Plan to discharge in: 24 Hours - Advance Directives Does patient have a Living Will: No Does patient have a Durable POA for Healthcare: No - Code Status/Comfort Care Code Status Assessed: Yes Code Status: Full Code Critical Care: No Time Spent Managing PTS Care (In Minutes): 45
--- NOTE | 2018-12-27 08:56 | ECHO ---
HEIGHT: 5 ft 11 in WEIGHT: 206 lb 3.2 oz DATE OF STUDY: 12/26/[address]: Jenny Daniels MD 2-DIMENSIONAL: YES M.MODE: YES DOPPLER: YES COLOR FLOW: YES TDS: NO PORTABLE: NO DEFINITY: NO BUBBLE STUDY: NO DIAGNOSIS: STROKE CARDIAC HISTORY: CATHERIZATION: NO SURGERY: NO PROSTHETIC VALVE: NO PACEMAKER: NO MEASUREMENTS (cm) DIASTOLIC (NORMALS) SYSTOLIC (NORMALS) IVSd 1.0 (0.6-1.2) LA Diam 3.9 (1.9-4.0) LVEF 61% LVIDd 4.0 (3.5-5.7) LVIDs 2.7 (2.0-3.5) %FS 32% LVPWd 0.9 (0.6-1.2) Ao Diam 2.6 (2.0-3.7) 2 DIMENSIONAL ASSESSMENT: RIGHT ATRIUM: NORMAL LEFT ATRIUM: NORMAL RIGHT VENTRICLE: NORMAL LEFT VENTRICLE: NORMAL TRICUSPID VALVE: NORMAL MITRAL VALVE: NORMAL PULMONIC VALVE: NORMAL AORTIC VALVE: NORMAL PERICARDIAL EFFUSION: NONE AORTIC ROOT: NORMAL LEFT VENTRICULAR WALL MOTION: NORMAL DOPPLER/COLOR FLOW: TRACE TRICUSPID REGURGITATION. COMMENTS: NORMAL 2D ECHOCARDIOGRAM. TRACE TRICUSPID REGURGITATION. NO THROMBUS. NO VEGETATION. TECHNOLOGIST: Mary STERLING
== END 2018-12-26 12:33 | disposition home or self-care (01) ==
LOC: ER 20:22 → ERHOLD 12-26 01:26 → 4TH 12-26 01:58
PROVIDERS: ADMIT Hospitalist; ATTEND Hospitalist
DX: R20.2 Paresthesia of skin (principal); R20.0 Anesthesia of skin; Z86.73 Personal history of transient ischemic attack (TIA), and cerebral infarction without residual deficits; Z79.82 Long term (current) use of aspirin; D68.2 Hereditary deficiency of other clotting factors
CPT/HCPCS: 36415; 70450; 70496; 70544; 70549; 70553; 71046; 80048; 80053; 80061; 80076; 81003; 83735; 83880; 84484; 85025; 85610; 92610; 93005; 93306; 97162; 99285; A9577; G0378; J1650; J7030; Q9967

== ENCOUNTER 2022-12-31 05:47 | Emergency (ER) | payer BC ==
--- OUTSIDE RECORDS SUMMARY | 2022-12-31 05:49 | XMS REPORT | Continuity of Care Document ---
:[address] 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 [facility] Ventral Ventral Problem Active Common hernia hernia [facility] Seasonal Allergic Problem Active Commo n allergic rhinitis, Spiri t rhinitis seasonal [facility] Asthma Asthma Problem Active Common [facility] Herpes Herpes Problem Active Common labialis labialis [facility] [id number] 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 Spirit [facility] Esophageal Esophageal Problem Active C ommon hiatus hiatus Spirit hernia hernia [facility] Unilateral Inguinal Problem Active Com mon recurrent hernia Spirit simple recurrent [facility] inguinal unilateral [facility] Mixed Hyperlipid Problem Active Commo n hyperlipid emia, Spirit emia mixed [facility] Schatzki's Schatzki's Problem Active C ommon ring ring [facility] Gastro-eso Gastro-eso Problem Active C ommon phageal phageal Spirit reflux reflux - [facility] disease disease [facility] without without [facility] esophagiti esophagiti [facility] Allergies, Adverse Reactions, Alerts This patient has no known allergies or adverse reactions. Social History Social Habit Start Date Stop Date Quantity Comments Source History of Tobacco Use Co mmon [facility] Sex Assigned At Com [facility] Smoking Status Start Date Stop Date Source Never Smoker Common [facility] Medications Ordered Filled Start Stop Current Ordering Indication Dosage Frequency Signature Comments Components Source Medication Medication Date Date Medication? Clinician (SIG) Name Name methylPREDN methylPREDN 2021- No 1{table methylPRED ISolone 4 ISolone 4 08-22 t_with_ NISolone 4 MG MG 00:00: 00:00 food_or MG 00 :00 _milk} methylPREDN methylPREDN 2021- No 1{table ISolone 4 ISolone 4 08-22 t_with_ MG MG 00:00: 00:00 food_or 00 :00 _milk} Symbicort Symbicort Yes Fabian 2 puffs Common [facility] Lipitor Lipitor Yes Fabian 1 tablet Com [facility] Vitamin C Vitamin C Yes Fabian not Com [facility] Aspirin Aspirin Yes Fabian 1 tablet Com [facility] Valtrex Valtrex Yes Fabian 1 tablet Com [facility] Ventolin Ventolin Yes Fabian 2 puffs as Common HFA HFA Langford needed [facility] Centrum Men Centrum Men Yes Fabian not Common [facility] Symbicort Symbicort No 2{puffs BID Symbicort 160-4.5 160-4.5 } 160-4.5 MCG/ACT MCG/ACT MCG/ACT Vitamin C Vitamin C No Vitamin C Lipitor 40 Lipitor 40 No 1{table QD Lipitor 40 MG MG t} MG Valtrex 1 Valtrex 1 No 1{table QD Valtrex 1 GM GM t} GM Ventolin Ventolin No 2{puffs QID Ventolin HFA 90 HFA 90 _as_nee HFA 90 MCG/ACT MCG/ACT ded} MCG/ACT Centrum Men Centrum Men No Centrum Men Aspirin 81 Aspirin 81 No 1{table QD Aspirin 81 MG MG t} MG Symbicort Symbicort No 2{puffs BID 160-4.5 160-4.5 } MCG/ACT MCG/ACT Vitamin C Vitamin C No Lipitor 40 Lipitor 40 No 1{table QD MG MG t} Valtrex 1 Valtrex 1 No 1{table QD GM GM t} Ventolin Ventolin No 2{puffs QID HFA 90 HFA 90 _as_nee MCG/ACT MCG/ACT ded} Centrum Men Centrum Men No Aspirin 81 Aspirin 81 No 1{table QD MG MG t} Centrum Men Centrum Men No Centrum Men Aspirin 81 Aspirin 81 No 1{table QD Aspirin 81 MG MG t} MG Symbicort Symbicort No 2{puffs BID Symbicort 160-4.5 160-4.5 } 160-4.5 MCG/ACT MCG/ACT MCG/ACT Vitamin C Vitamin C No Vitamin C Ventolin Ventolin No 2{puffs QID Ventolin HFA 90 HFA 90 _as_nee HFA 90 MCG/ACT MCG/ACT ded} MCG/ACT Valtrex 1 Valtrex 1 No 1{table QD Valtrex 1 GM GM t} GM Lipitor 40 Lipitor 40 No 1{table QD Lipitor 40 MG MG t} MG Immunizations Ordered Immunization Filled Immunization Date Status Commen ts Source Name Name Afluria single dose Afluria single dose 2020-06-06 Completed [facility] 08:14:00 - [facility] Afluria single dose Afluria single dose 2020-06-06 Completed [facility] 08:14:00 - [facility] Afluria single dose Afluria single dose 2020-06-06 Completed [facility] 08:14:00 - [facility] Afluria Afluria 2018-05-29 Completed [facility] 15:52:00 [facility] Afluria Afluria 2018-05-29 Completed [facility] 15:52:00 [facility] Afluria Afluria 2018-05-29 Completed [facility] 15:52:00 [facility] Procedures This patient has no known procedures. Encounters Start End Encounter Admission Attending Care Care Encounter Source Date/Time Date/Time Type Type Clinicians Facility Department ID 2022-12-23 Outpatient Langford, STLMLC STLMLC [id number] Common 08:44:00 Fabian [id number] [facility] 2022-12-21 Outpatient Langford, STLMLC STLMLC [id number] Common 10:12:00 Fabian [id number] [facility] 2021-09-16 Outpatient Langford, STLMLC STLMLC [id number] Common 11:17:22 Fabian [id number] [facility] 2021-09-16 Outpatient Langford, STLMLC STLMLC [id number] Common 11:08:33 Fabian [id number] [facility] 2021-09-16 Outpatient Langford, STLMLC STLMLC [id number] Common 11:08:05 Fabian [id number] [facility] 2021-10-09 2021-10-09 (TEL) STLMLC STLMLC [id number] Co mmon 00:00:00 00:00:00 [facility] 2021-08-23 2021-08-23 (TEL) STLMLC STLMLC [id number] Co mmon 00:00:00 00:00:00 [facility] 2021-08-22 2021-08-22 (TEL) STLMLC STLMLC [id number] Co mmon 00:00:00 00:00:00 [facility] 2020-06-06 2020-06-06 Outpatient STLMLC STLMLC [id number] Common 00:00:00 00:00:00 [facility] 2020-02-07 2020-02-07 [id number] Common 08:00:00 08:00:[address] [facility] 2019-12-14 2019-12-14 [facility] [id number] Common 13:25:00 13:25:[address] [facility] 2019-10-11 2019-10-11 [facility] [id number] Common 08:17:00 08:17:[address] [facility] 2019-10-09 2019-10-09 [facility] [id number] Common 14:30:00 14:30:00 t [employer] [address] [facility] 2018-08-08 2018-08-08 [facility] [id number] Common 08:45:00 08:45:00 t [employer] [facility] it Drive [facility] Results This patient has no known results.
[2022-12-31] MEDS ORDERED: MORPHINE 4 MG/ML SYR ONE (06:27)
[2022-12-31] MEDS ORDERED: TAMSULOSIN 0.4 MG SR CAP ONE (06:27)
[2022-12-31] MEDS ORDERED: KETOROLAC 30 MG/ML INJ ONE (06:28)
[2022-12-31] MEDS ORDERED: MAGNESIUM SULFATE 1 gm IVPB 1 GM/100 ML BAG IV ONE (06:28)
[2022-12-31 06:38] LABS: Absolute Lymphocytes (CBC) 0.9 K/uL (0.7-4.9); Hematocrit 43.5 % (39.6-49.0); Lymphocytes % 12.4 % (15.3-44.8); MCV 84.9 fL (80-100); MPV 7.6 fL (7.6-11.3); RBC Red Blood Cell Count 5.13 M/uL (4.33-5.43)
[2022-12-31 06:49] LABS: Specific Gravity 1.009 (1.005-1.030); Urine Bacteria <20 /HPF (<20); Urine Bilirubin NEGATIVE (Negative); Urine Blood 3+ (OVER) (Negative); Urine Clarity Clear (Clear); Urine Color Yellow (Yellow); Urine Glucose NEGATIVE (Negative); Urine Mucus 1+ /HPF (None Seen); Urine Protein NEGATIVE (Negative); Urine RBC >50 /HPF (None Seen); Urine Urobilinogen Normal (Normal)
[2022-12-31 06:57] LABS: Potassium 3.8 mEq/L (3.5-5.1)
--- NOTE | 2022-12-31 07:21 | RAD REPORT ---
EXAM DESCRIPTION: CTStone Protocol - 12/31/2022 6:41 am CLINICAL HISTORY: right flank pain COMPARISON: Stone Protocol dated 09/18/2017; Stone Protocol dated 11/18/2015 TECHNIQUE: CT of the abdomen and pelvis was performed. All CT scans are performed using dose optimization technique as appropriate and may include automated exposure control or mA/KV adjustment according to patient size. FINDINGS: Lower chest: No acute abnormality. Small hiatal hernia. Circumferentially thickened distal esophagus . Liver: No acute abnormality or suspicious lesions. Biliary: No biliary ductal dilatation. Stomach: No significant focal abnormality. Duodenum: No significant focal abnormality. Pancreas: No significant abnormality. Spleen: No significant abnormality. Adrenal: No suspicious lesions. Kidney/ureter: Mild right-sided hydroureteronephrosis. 3 mm stone in the right proximal to mid ureter . No renal calculi. Low-density left renal lesion measuring 2 cm is compatible with cyst. Retroperitoneum: No retroperitoneal adenopathy. Vascular: No aneurysm. Bowel: No significant focal abnormality. Normal appendix. Peritoneum: No ascites or free air. Small fat containing umbilical hernia. Bladder: Grossly unremarkable. Reproductive: No adnexal masses. Bones: No acute fracture. Other: n/a IMPRESSION: Mild right-sided hydroureteronephrosis secondary to a 3 mm stone in the right proximal t o mid ureter.
--- NOTE | 2022-12-31 08:11 | ER ---
Nurse's Notes [facility] Name: Ashwin Engel Age: 62 yrs Sex: Male : 1960 Arrival Date: 12/31/2022 Time: 05:47 Bed 13 Private MD: Diagnosis: Right mid ureter renal calculus (3 mm) with mild right hydronephrosis Presentation: 12/31 06:14 Chief complaint: Patient states: "On 12/15 I went to [facility] and they said I had a 2 vc1 mm stone.". Coronavirus screen: Vaccine status: Patient reports being unvaccinated. Client denies travel out of the [place] in the last 14 days. At this time, the client does not indicate any symptoms associated with coronavirus-19. Ebola Screen: Patient negative for fever greater than or equal to 101.5 degrees Fahrenheit, and additional compatible Ebola Virus Disease symptoms Patient denies exposure to infectious person. Patient denies travel to an Ebola-affected area in the 21 days before illness onset. Patient positive for the following Ebola Virus Disease associated symptoms:. Initial Sepsis Screen: Does the patient meet any 2 criteria? No. Patient's initial sepsis screen is negative. Does the patient have a suspected source of infection? No. Patient's initial sepsis screen is negative. Risk Assessment: Do you want to hurt yourself or someone else? Patient reports no desire to harm self or others. Onset of symptoms was December 31, 2022 at 03:00. 06:14 Method Of Arrival: Ambulatory vc1 06:14 Acuity: CAESAR 3 vc1 Triage Assessment: 06:45 General: Appears in no apparent distress. uncomfortable, Behavior is calm, cooperative, vc1 appropriate for age. Pain: Complains of pain in right testicle, suprapubic area and right iliac crest and right mid back Pain does not radiate. Pain currently is 8 out of 10 on a pain scale. EENT: No deficits noted. No signs and/or symptoms were reported regarding the EENT system. Neuro: Level of Consciousness is awake, alert, obeys commands, Oriented to person, place, time, situation, Appropriate for age. Cardiovascular: No deficits noted. Respiratory: Airway is patent Respiratory effort is even, unlabored, Respiratory pattern is regular, symmetrical. GI: No deficits noted. No signs and/or symptoms were reported involving the gastrointestinal system. : Reports pain in right testicle. Derm: No deficits noted. No signs and/or symptoms reported regarding the dermatologic system. Musculoskeletal: No deficits noted. No signs and/or symptoms reported regarding the musculoskeletal system. Historical: - Allergies: 06:17 No Known Allergies; vc1 - PMHx: 06:17 Asthma; Salazar's Palsy; colonoscopy; EGD; Factor 7; hiatal hernia; inguinal hernia; right vc1 knee surgery; ulnar nerve transposition; - Immunization history:: Client reports having NOT received the Covid vaccine. - Social history:: Smoking status: Patient denies any tobacco usage or history of. - Family history:: not pertinent. - Hospitalizations: : No recent hospitalization is reported. Screenin:09 Abuse screen: Denies threats or abuse. Denies injuries from another. Nutritional ha1 screening: No deficits noted. Tuberculosis screening: No symptoms or risk factors identified. 06:47 [facility] ED Fall Risk Assessment (Adult) History of falling in the last 3 months, vc1 including since admission No falls in past 3 months (0 pts) Confusion or Disorientation No (0 pts) Intoxicated or Sedated No (0 pts) Impaired Gait No (0 pts) Mobility Assist Device Used No (0 pt) Altered Elimination No (0 pt) Score/Fall Risk Level 0 - 2 = Low Risk Oriented to surroundings, Maintained a safe environment, Educated pt \\T\\ family on fall prevention, incl call for assistance when getting out of bed. Assessment: 06:04 General: Appears uncomfortable, Behavior is cooperative. Pain: Complains of pain in ha1 right testicle and right back pain Pain does not radiate. Pain currently is 10 out of 10 on a pain scale. Quality of pain is described as throbbing, Pain began 4 hours ago. Neuro: Level of Consciousness is awake, alert, obeys commands, Oriented to person, place, time, situation. Cardiovascular: Capillary refill < 3 seconds Patient's skin is warm and dry. Respiratory: Airway is patent Respiratory effort is even, unlabored, Respiratory pattern is regular, symmetrical. 06:04 GI: No signs and/or symptoms were reported involving the gastrointestinal system. ha1 Abdomen is non-distended, obese, Abd is soft and non tender X 4 quads. 06:04 : Reports pain on the right testicle. Musculoskeletal: Circulation, motion, and ha1 sensation intact. Range of motion: intact in all extremities, Reports pain in right side of back. 06:04 Reassessment: in shift notified of blood pressure. ha1 07:30 Reassessment: Patient appears in no apparent distress at this time. Patient and/or hb family updated on plan of care and expected duration. Pain level reassessed. Patient is alert, oriented x 3, equal unlabored respirations, skin warm/dry/pink. 08:35 Reassessment: Patient appears in no apparent distress at this time. Patient and/or hb family updated on plan of care and expected duration. Pain level reassessed. Patient is alert, oriented x 3, equal unlabored respirations, skin warm/dry/pink. Vital Signs: 06:09 BP 173 / 115; Pulse 78; Resp 20 S; Pulse Ox 98% on R/A; ha1 06:14 Temp 97.8; Weight 107.23 kg; Height 6 ft. 0 in. ; vc1 06:51 BP 156 / 111; Pulse 78; Resp 19; Pulse Ox 96% on R/A; kd3 06:54 BP 156 / 93; Pulse 76; Resp 19; Pulse Ox 97% on R/A; kd3 08:00 BP 146 / 86; Pulse 77; Resp 16; Pulse Ox 99% on R/A; hb 06:14 Body Mass Index 32.06 (107.23 kg, 182.88 cm) vc1 ED Course: 05:50 Patient arrived in ED. ja2 05:54 Humphrey Ennis MD is Attending Physician. rn 05:54 Patient has correct armband on for positive identification. Bed in low position. Call ha1 light in reach. Side rails up X 1. Adult w/ patient. 06:17 Triage completed. vc1 06:17 Ana Martinez, SHERLY is Primary Nurse. kd3 06:18 Arm band placed on right wrist. vc1 06:20 Inserted saline lock: 20 gauge in right antecubital area, using aseptic technique. ha1 Blood collected. 06:28 Urinalysis w/ reflexes Sent. ha1 06:28 Basic Metabolic Panel Sent. ha1 06:28 CBC with Diff Sent. ha1 06:43 CT Stone Protocol In Process Unspecified. EDMS 07:29 Attending Physician role handed off by Humphrey Ennis MD kdr 07:29 Kofi Boland MD is Attending Physician. kdr 08:09 Sunny Pedraza MD is Referral Physician. kdr 08:35 No provider procedures requiring assistance completed. IV discontinued, intact, hb bleeding controlled, No redness/swelling at site. Administered Medications: 06:29 Drug: Flomax PO 0.4 mg Route: PO; kd3 08:34 Follow up: Response: No adverse reaction hb 06:30 Drug: morphine IVP or IV 4 mg Route: IVP; Infused Over: 4 mins; Site: right antecubital;kd3 08:34 Follow up: Response: No adverse reaction hb 06:30 Drug: Ketorolac IVP 15 mg Route: IVP; Site: right antecubital; kd3 08:34 Follow up: Response: No adverse reaction hb 06:45 Drug: Magnesium Sulfate IVPB 1 grams Route: IVPB; Infused Over: 1 hrs; Site: right kd3 antecubital; 07:37 Follow up: IV Status: Completed infusion ap3 08:34 Drug: Trimethoprim-Sulfamethoxazole PO (160 mg-800 mg (DS) 1 tablet Route: PO; hb 08:34 Follow up: Response: Medication administered at discharge. hb Medication: 06:46 VIS not applicable for this client. vc1 Outcome: 08:10 Discharge ordered by . kdr 08:35 Discharged to home ambulatory, with family. hb 08:35 Condition: stable 08:35 Discharge instructions given to patient, Instructed on discharge instructions, follow up and referral plans. medication usage, Demonstrated understanding of instructions, follow-up care, medications, Prescriptions given X 4. 08:35 Patient left the ED. hb Signatures: Dispatcher [employer] EDMS Kofi Boland MD MD kdr Humphrey Ennis MD MD rn Baxter, Heather, RN RN hb Iveth Hassan RN RN ap3 Allyn Moreno2 Ana Martinez RN RN kd3 Laina Laws RN RN vc1 Jenifer Ayala RN RN ha1 Corrections: (The following items were deleted from the chart) 06:09 06:04 Respiratory: Airway is patent Respiratory effort is even, unlabored, Respiratory ha1 pattern is regular, symmetrical, ha1
--- NOTE | 2022-12-31 08:11 | EDPHYS ---
Physician Documentation [facility] Name: Ashwin Engel Age: 62 yrs Sex: Male : 1960 Arrival Date: 12/31/2022 Time: 05:47 Bed 13 Private MD: ED Physician Kofi Boland HPI: 12/31 06:31 This 62 yrs old Male presents to ER via Ambulatory with complaints of Possible Kidney rn Stone. 06:31 The patient complains of pain in the right mid back. The pain radiates to the abdomen. rn Onset: The symptoms/episode began/occurred this morning. Modifying factors: The symptoms are alleviated by nothing. the symptoms are aggravated by nothing. Associated signs and symptoms: Pertinent positives: nausea, Pertinent negatives: fever. Severity of pain: At its worst the pain was severe in the emergency department the pain has improved. The patient has experienced similar episodes in the past. The patient has been recently seen by a physician:. Pt reports 2 weeks ago went to outside ER and diagnosed with 2mm kidney stone, was pain free for the last week, pain returned this evening/morning, radiates to right testicle and feels like his previous kidney stones. + nausea. . Historical: - Allergies: 06:17 No Known Allergies; vc1 - PMHx: 06:17 Asthma; Salazar's Palsy; colonoscopy; EGD; Factor 7; hiatal hernia; inguinal hernia; right vc1 knee surgery; ulnar nerve transposition; - Immunization history:: Client reports having NOT received the Covid vaccine. - Social history:: Smoking status: Patient denies any tobacco usage or history of. - Family history:: not pertinent. - Hospitalizations: : No recent hospitalization is reported. ROS: 06:31 Constitutional: Negative for fever, chills, and weight loss, Eyes: Negative for injury, rn pain, redness, and discharge, Neck: Negative for injury, pain, and swelling, Cardiovascular: Negative for chest pain, palpitations, and edema, Respiratory: Negative for shortness of breath, cough, wheezing, and pleuritic chest pain, Abdomen/GI: Negative for diarrhea, and constipation, Back: + right flank pain : + hematuria MS/Extremity: Negative for injury and deformity, Skin: Negative for injury, rash, and discoloration, Neuro: Negative for headache, weakness, numbness, tingling, and seizure. Exam: 06:31 Constitutional: This is a well developed, well nourished patient who is awake, alert, rn appears uncomfortable Head/Face: Normocephalic, atraumatic. Cardiovascular: Regular rate and rhythm. No pulse deficits. Respiratory: No increased work of breathing, no retractions or nasal flaring. Abdomen/GI: Soft, non-tender Back: Mild right CVAT Skin: Warm, dry MS/ Extremity: Pulses equal, no cyanosis. Vital Signs: 06:09 BP 173 / 115; Pulse 78; Resp 20 S; Pulse Ox 98% on R/A; ha1 06:14 Temp 97.8; Weight 107.23 kg; Height 6 ft. 0 in. ; vc1 06:51 BP 156 / 111; Pulse 78; Resp 19; Pulse Ox 96% on R/A; kd3 06:54 BP 156 / 93; Pulse 76; Resp 19; Pulse Ox 97% on R/A; kd3 08:00 BP 146 / 86; Pulse 77; Resp 16; Pulse Ox 99% on R/A; hb 06:14 Body Mass Index 32.06 (107.23 kg, 182.88 cm) vc1 MDM: 05:54 Patient medically screened. rn 07:08 Transition of care: After a detail discussion of the patient's case, care is rn transferred to Kofi Boland MD. 08:12 Data reviewed: vital signs, nurses notes, lab test result(s), radiologic studies. ED kdr course: The patient was doing much better with the interventions given. He was happy with the care provided the plan for discharge and follow-up. I did reach out to Dr. Pedraza and informed him of the patient's presence in the ED and the findings. He was also informed of the discharge and follow-up plans. Patient was discharged in good condition. 12/31 06:12 Order name: CBC with Diff; Complete Time: 07: rn 12/31 06:12 Order name: Basic Metabolic Panel; Complete Time: 07: rn 12/31 06:12 Order name: Urinalysis w/ reflexes; Complete Time: 07: rn 12/31 06:12 Order name: CT Stone Protocol; Complete Time: 07:34 rn 12/31 06:12 Order name: IV Start; Complete Time: 06:28 rn Administered Medications: 06:29 Drug: Flomax PO 0.4 mg Route: PO; kd3 08:34 Follow up: Response: No adverse reaction hb 06:30 Drug: morphine IVP or IV 4 mg Route: IVP; Infused Over: 4 mins; Site: right antecubital;kd3 08:34 Follow up: Response: No adverse reaction hb 06:30 Drug: Ketorolac IVP 15 mg Route: IVP; Site: right antecubital; kd3 08:34 Follow up: Response: No adverse reaction hb 06:45 Drug: Magnesium Sulfate IVPB 1 grams Route: IVPB; Infused Over: 1 hrs; Site: right kd3 antecubital; 07:37 Follow up: IV Status: Completed infusion ap3 08:34 Drug: Trimethoprim-Sulfamethoxazole PO (160 mg-800 mg (DS) 1 tablet Route: PO; hb 08:34 Follow up: Response: Medication administered at discharge. hb Disposition Summary: 12/31/22 08:10 Discharge Ordered Location: Home kdr Problem: an acute exacerbation kdr Symptoms: have improved kdr Condition: Stable kdr Diagnosis - Right mid ureter renal calculus (3 mm) with mild right hydronephrosis kdr Followup: kdr - With: Sunny Pedraza MD - When: 1 - 2 days - Reason: If symptoms return, Further diagnostic work-up, Recheck today's complaints, Continuance of care, Re-evaluation by your physician Discharge Instructions: - Discharge Summary Sheet kdr - Kidney Stones, [id number] kdr Forms: - Medication Reconciliation Form kdr - Thank You Letter kdr - Antibiotic Education kdr - Prescription Opioid Use kdr Prescriptions: - Flomax 0.4 mg Oral capsule - take 1 capsule by ORAL route daily for 10 days; 10 capsule; Refills: 0, Product kdr Selection Permitted - Zofran 4 mg Oral Tablet - take 1 tablet by ORAL route every 12 hours As needed; 16 tablet; Refills: 0, kdr Product Selection Permitted - Tramadol 50 mg Oral Tablet - take 1 tablet by ORAL route every 8 hours as needed; 16 tablet; Refills: 0, kdr Product Selection Permitted - Bactrim DS 800-160 mg Oral Tablet - take 1 tablet by ORAL route every 12 hours for 7 days; 14 tablet; Refills: 0, kdr Product Selection Permitted Signatures: Dispatcher [employer] EDMS Rittger, Kofi, MD Humphrey Pete MD MD rn Baxter, Heather, RN RN hb Ana Martinez, RN RN kd3 Laina Laws, RN RN vc1 Iveth Hassan RN ap3
[2022-12-31] MEDS ORDERED: SMZ./TMP. 800/160 MG TABLET ONE (08:35)
[2022-12-31 08:50] VITALS: TEMP 97.8
[2022-12-31 09:02] VITALS: BP 146/86; O2SAT 99
== END 2022-12-31 08:35 | disposition home or self-care (01) ==
LOC: ER 05:47
DX: N13.2 Hydronephrosis with renal and ureteral calculous obstruction (principal); Z87.442 Personal history of urinary calculi
CPT/HCPCS: 96365; 85025; 81001; 80048; 36415; 76377; 74176; 96375; 99284; J3475

== ENCOUNTER 2023-01-03 22:05 | Emergency (ER) | payer BC ==
--- OUTSIDE RECORDS SUMMARY | 2023-01-03 22:11 | XMS REPORT | Continuity of Care Document ---
:1960 Author Organization 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 [facility] Ventral Ventral Problem Active Common hernia hernia [facility] Seasonal Allergic Problem Active Commo n allergic rhinitis, Spiri t rhinitis seasonal [facility] Asthma Asthma Problem Active Common [facility] Herpes Herpes Problem Active Common labialis labialis [facility] [id number] 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 Spirit [facility] Esophageal Esophageal Problem Active C ommon hiatus hiatus Spirit hernia hernia [facility] Unilateral Inguinal Problem Active Com mon recurrent hernia Spirit simple recurrent [facility] inguinal unilateral [facility] Mixed Hyperlipid Problem Active Commo n hyperlipid emia, Spirit emia mixed [facility] Schatzki's Schatzki's Problem Active C ommon ring ring [facility] Gastro-eso Gastro-eso Problem Active C ommon phageal phageal Spirit reflux reflux - CH[facility] disease disease [facility] without without [facility] esophagiti esophagiti [facility] Allergies, Adverse Reactions, Alerts This patient has no known allergies or adverse reactions. Social History Social Habit Start Date Stop Date Quantity Comments Source History of Tobacco Use Co mmon [facility] Sex Assigned At Com [facility] Smoking Status Start Date Stop Date Source Never Smoker Common [facility] Medications Ordered Filled Start Stop Current Ordering [...] Symbicort Symbicort Yes Fabian 2 puffs Common [facility] Lipitor Lipitor Yes Fabian 1 tablet Com [facility] Vitamin C Vitamin C Yes Fabian not Com [facility] Aspirin Aspirin Yes Fabian 1 tablet Com [facility] Valtrex Valtrex Yes Fabian 1 tablet Com [facility] Ventolin Ventolin Yes Fabian 2 puffs as Common HFA HFA Langford needed [facility] Centrum Men Centrum Men Yes Fabian not Common [facility] Symbicort Symbicort No 2{puffs BID Symbicort 160-4.5 [...] dose 2020-06-06 Completed Common Spirit 08:14:00 - [facility] Afluria single dose Afluria single dose 2020-06-06 Completed Common [facility] 08:14:00 - [facility] Afluria single dose Afluria single dose 2020-06-06 Completed [facility] 08:14:00 - [facility] Afluria Afluria 2018-05-29 Completed [facility] 15:52:00 [facility] Afluria Afluria 2018-05-29 Completed [facility] 15:52:00 [facility] Afluria Afluria 2018-05-29 Completed [facility] 15:52:00 [facility] Procedures This patient has no known procedures. Encounters Start End Encounter Admission Attending Care Care Encounter Source Date/Time Date/Time Type Type Clinicians Facility Department ID 2022-12-23 Outpatient Langford, STLMLC STLMLC [id number] Common 08:44:00 Fabian [id number] [facility] 2022-12-21 Outpatient Langford, STLMLC STLMLC [id number] Common 10:12:00 Fabian [id number] [facility] 2021-09-16 Outpatient Langford, STLMLC STLMLC [id number] Common 11:17:22 Fabian 39386 [facility] 2021-09-16 Outpatient Langford, STLMLC STLMLC [id number] Common 11:08:33 Fabian 34943 [facility] 2021-09-16 Outpatient Langford, STLMLC STLMLC [id number] Common 11:08:05 Fabian [id number] [facility] 2021-10-09 2021-10-09 (TEL) STLMLC STLMLC [id number] Co mmon 00:00:00 00:00:00 [facility] 2021-08-23 2021-08-23 (TEL) STLMLC STLMLC [id number] Co mmon 00:00:00 00:00:00 [facility] 2021-08-22 2021-08-22 (TEL) STLMLC STLMLC [id number] Co mmon 00:00:00 00:00:00 [facility] 2020-06-06 2020-06-06 Outpatient STLMLC STLMLC [id number] Common 00:00:00 00:00:00 [facility] 2020-02-07 2020-02-07 [id number] Common 08:00:00 08:00:00 [place] [address] [facility] 2019-12-14 2019-12-14 [id number] Common 13:25:00 13:25:00 [place] [address] [facility] 2019-10-11 2019-10-11 [facility] [id number] Common 08:17:00 08:17:00 [place] [address] [facility] 2019-10-09 2019-10-09 [facility] [id number] Common 14:30:00 14:30:[address] [employer] [address] [facility] 2018-08-08 2018-08-08 [facility] [id number] Common 08:45:00 08:45:00 t [employer] [facility] it Drive [facility] Results This patient has no known results.
[2023-01-03 22:47] LABS: Specific Gravity 1.025 (1.005-1.030); Urine Bacteria 20-50 /HPF (<20); Urine Bilirubin NEGATIVE (Negative); Urine Blood Negative (Negative); Urine Clarity Clear (Clear); Urine Color Yellow (Yellow); Urine Crystals Unidentified Few /HPF (None Seen); Urine Glucose NEGATIVE (Negative); Urine Mucus 1+ /HPF (None Seen); Urine Protein TRACE (Negative); Urine Urobilinogen Normal (Normal); Urine pH 5.5 (5.0-7.0)
[2023-01-03] MEDS ORDERED: NA CHLORIDE 0.9% 1,000 ML ONE (23:55)
[2023-01-03] MEDS ORDERED: MORPHINE 4 MG/ML SYR ONE (23:55)
[2023-01-03] MEDS ORDERED: ONDANSETRON 4 MG/2 ML VIAL ONE (23:55)
[2023-01-03 23:59] LABS: Absolute Lymphocytes (CBC) 1.3 K/uL (0.7-4.9); Hematocrit 41.7 % (39.6-49.0); MCV 86.6 fL (80-100); MPV 7.8 fL (7.6-11.3); RBC Red Blood Cell Count 4.82 M/uL (4.33-5.43)
[2023-01-04 00:10] LABS: Albumin 3.8 g/dL (3.4-5.0); Bilirubin Total 0.3 mg/dL (0.2-1.0); Protein, Total 7.3 g/dL (6.4-8.2)
[2023-01-04] MEDS ORDERED: CEFTRIAXONE 1000 MG/VIAL ONE (01:30)
--- NOTE | 2023-01-04 02:48 | EDPHYS ---
Physician Documentation [facility] Name: Ashwin Engel Age: 62 yrs Sex: Male : 1960 Arrival Date: 01/03/2023 Time: 22:05 Bed 19 Private MD: ED Physician Primo Guzman HPI: 01/03 22:30 This 62 yrs old Male presents to ER via Ambulatory with complaints of Possible Kidney cp Stone. 22:30 Patient is a 62-year-old male who returns to this emergency department with complaints cp of continued right flank pain. Patient reports he was seen here this past Tuesday with flank pain and diagnosed with a kidney stone. Patient is concerned that he has not passed the stone at this time and continues to have pain. Patient is now reporting pain to the left flank, left testicle and continued pain to right testicle. Patient denies fever, vomiting and has not followed up with urology. Historical: - Allergies: 22:21 No Known Allergies; as6 - PMHx: 22:21 Asthma; Salazar's Palsy; colonoscopy; EGD; Factor 7; hiatal hernia; inguinal hernia; right as6 knee surgery; ulnar nerve transposition; - Immunization history:: Client reports having NOT received the Covid vaccine. - Social history:: Smoking status: Patient denies any tobacco usage or history of. ROS: 22:35 Constitutional: Negative for body aches, chills, fever, poor PO intake. cp 22:35 Eyes: Negative for injury, pain, redness, and discharge. cp 22:35 ENT: Negative for drainage from ear(s), ear pain, sore throat, difficulty swallowing, difficulty handling secretions. 22:35 Cardiovascular: Negative for chest pain, edema, palpitations. 22:35 Respiratory: Negative for cough, shortness of breath, wheezing. 22:35 Abdomen/GI: Positive for abdominal pain, nausea, Negative for vomiting, diarrhea, constipation, anorexia. 22:35 Back: Positive for flank pain, bilaterally. 22:35 : Positive for testicular pain 22:35 Neuro: Negative for altered mental status, dizziness, headache, numbness, syncope, weakness. 22:35 All other systems are negative. Exam: 22:40 Head/Face: Normocephalic, atraumatic. cp 22:40 Constitutional: The patient appears in no acute distress, alert, awake, non-diaphoretic, non-toxic, well developed, well nourished, uncomfortable, overweight 22:40 Eyes: Periorbital structures: appear normal, Conjunctiva: normal, no exudate, no injection, Sclera: no appreciated abnormality, Lids and lashes: appear normal, bilaterally. 22:40 ENT: External ear(s): are unremarkable, Nose: is normal, Mouth: Lips: moist, Oral mucosa: pink and intact, moist, Posterior pharynx: is normal, airway is patent, no erythema, no exudate. 22:40 Chest/axilla: Inspection: normal. 22:40 Cardiovascular: Rate: normal, Rhythm: regular, Edema: is not appreciated, JVD: is not appreciated. 22:40 Respiratory: the patient does not display signs of respiratory distress, Respirations: normal, no use of accessory muscles, no retractions, labored breathing, is not present, Breath sounds: are clear throughout, no decreased breath sounds, no stridor, no wheezing. 22:40 Abdomen/GI: Inspection: abdomen appears normal, Bowel sounds: active, all quadrants, Palpation: soft, in all quadrants, moderate abdominal tenderness, in the anterior aspect of left lateral abdomen, posterior aspect of left lateral abdomen, anterior aspect of right lateral abdomen and posterior aspect of right lateral abdomen, rebound tenderness, is not appreciated, involuntary guarding, is not appreciated. 22:40 Back: CVA tenderness, is absent. 22:40 Skin: no rash present. 22:40 Neuro: Orientation: to person, place \T\ time. Mentation: is normal, Motor: is normal, Sensation: is normal, Gait: is steady, at a normal pace, without difficulty. Vital Signs: 22:18 BP 148 / 94; Pulse 80; Resp 18 S; Temp 97.2(TE); Pulse Ox 97% on R/A; Weight 107.05 kg as6 (R); Height 6 ft. 0 in. (R); Pain 10; 01/04 00:30 BP 154 / 80; Pulse 67; Resp 17 S; Pulse Ox 94% on R/A; aa9 01:32 BP 127 / 78; Pulse 69; Resp 17 S; Pulse Ox 97% on R/A; aa9 02:58 BP 132 / 74; Pulse 70; Resp 17; Temp 98.2; Pulse Ox 97% on R/A; aa9 01/03 22:18 Body Mass Index 32.01 (107.05 kg, 182.88 cm) as6 01/03 22:18 Pain Scale: Adult as6 MDM: 01/03 22:23 Patient medically screened. 01/04 02:45 Data reviewed: vital signs, nurses notes, lab test result(s), radiologic studies, CT cp scan, plain films, ultrasound. 02:45 Differential diagnosis: nephrolithiasis, pyelonephritis, UTI, diverticulitis, ruptured cp AAA, dissecting AAA, sepsis. Consideration of Admission/Observation Escalation of care including admission/observation considered. I considered the following discharge prescriptions or medication management in the emergency department Medications were administered in the Emergency Department. See MAR. Counseling: I had a detailed discussion with the patient and/or guardian regarding: the historical points, exam findings, and any diagnostic results supporting the discharge/admit diagnosis, lab results, radiology results, the need for outpatient follow up, a urologist. Response to treatment: the patient's symptoms have markedly improved after treatment, VSS. Pain markedly improved. Patient reports being seen by DR Pedraza in the past for kidney stones with most recent visit about 2 weeks ago. Will discharge to home to f/u with DR Pedraza. Return to ED fever, worsening symptoms. 01/03 22:23 Order name: CBC with Diff; Complete Time: 01:07 01/03 22:23 Order name: CMP; Complete Time: 01:07 01/03 22:23 Order name: Lipase; Complete Time: 01:07 01/03 22:23 Order name: Urinalysis W/Microscopic; Complete Time: 23:39 01/03 23:40 Interpretation: Reviewed. 01/03 22:51 Order name: Urine Culture EDMS 01/03 23:41 Order name: XRAY KUB 01/03 23:41 Order name: US Rp Exam Complete 01/03 23:41 Order name: US Scrotum Testicles 01/04 01:20 Order name: CT Stone Protocol 01/03 22:23 Order name: IV Saline Lock; Complete Time: 23:45 01/03 22:23 Order name: Labs collected and sent; Complete Time: 23:45 01/04 02:40 Order name: PO challenge; Complete Time: 02:46 cp Administered Medications: 00:15 Drug: Ondansetron IVP 4 mg Route: IVP; Site: right antecubital; aa9 02:58 Follow up: Response: No adverse reaction aa9 00:30 Drug: morphine IVP or IV 4 mg Route: IVP; Infused Over: 4 mins; Site: right antecubital;aa9 02:58 Follow up: Response: No adverse reaction aa9 00:30 Drug: NS 0.9% IV 500 ml Route: IV; Rate: bolus; Site: right antecubital; aa9 02:59 Follow up: Response: No adverse reaction; IV Status: Completed infusion; IV Intake: aa9 500ml 00:55 Drug: NS 0.9% IV 500 ml Route: IV; Rate: 100 ml/hr; Site: right antecubital; aa9 03:00 Follow up: Response: No adverse reaction; IV Status: Completed infusion; IV Intake: aa9 300ml 01:31 Drug: Rocephin IV 1 grams Route: IV; Rate: calculated rate; Site: right antecubital; aa9 02:59 Follow up: Response: No adverse reaction; IV Status: Completed infusion; IV Intake: [id number] 02:57 Drug: HYDROcodone-acetaminophen PO 10 mg-325 mg 1 tabs Route: PO; aa9 02:57 Follow up: Response: No adverse reaction aa9 02:57 Drug: Flomax PO 0.4 mg Route: PO; aa9 02:57 Follow up: Response: No adverse reaction aa9 Disposition Summary: 01/04/23 02:47 Discharge Ordered Location: Home cp Problem: an ongoing problem cp Symptoms: have improved cp Condition: Stable cp Diagnosis - Calculus of ureter - right cp Followup: cp - With: Sunny Pedraza MD - When: 1 - 2 days - Reason: Recheck today's complaints Discharge Instructions: - Discharge Summary Sheet cp - Kidney Stones cp - Renal Colic cp Forms: - Medication Reconciliation Form cp - Thank You Letter cp - Antibiotic Education cp - Prescription Opioid Use cp Prescriptions: - cefpodoxime 200 mg Oral Tablet - take 1 tablet by ORAL route every 12 hours for 10 days with food; 20 tablet; cp Refills: 0, Product Selection Permitted Addendum: 01/05/2023 04:10 Co-signature as Attending Physician, Primo Guzman MD I agree with the assessment s p4 and plan of care. I reviewed the patient's care provided by the Advanced Practice Provider and agree with the diagnosis and treatment plan. Signatures: Dispatcher [employer] EDMS Remington Pineda PA PA cp Slawson, Ashby, RN RN as6 Mar Covarrubias RN RN aa9 Primo Guzman MD MD sp4 Corrections: (The following items were deleted from the chart) 02:01/04 22:40 Constitutional: The patient appears in no acute distress, alert, awake, cp non-diaphoretic, non-toxic, well developed, well nourished, uncomfortable, overweight cp 01/05 02:01/04 22:40 Head/Face: Normocephalic, atraumatic. cp cp 01/05 02:01/04 22:40 Eyes: Periorbital structures: appear normal, Conjunctiva: normal, no cp exudate, no injection, Sclera: no appreciated abnormality, Lids and lashes: appear normal, bilaterally, cp 01/05 02:01/04 22:40 ENT: External ear(s): are unremarkable, Nose: is normal, Mouth: Lips: cp moist, Oral mucosa: pink and intact, moist, Posterior pharynx: is normal, airway is patent, no erythema, no exudate, cp 01/05 02:01/04 22:40 Chest/axilla: Inspection: normal, cp cp 01/05 02:01/04 22:40 Cardiovascular: Rate: normal, Rhythm: regular, Edema: is not appreciated, cp JVD: is not appreciated, cp 01/05 02:01/04 22:40 Respiratory: the patient does not display signs of respiratory distress, cp Respirations: normal, no use of accessory muscles, no retractions, labored breathing, is not present, Breath sounds: are clear throughout, no decreased breath sounds, no stridor, no wheezing, cp 01/05 02:01/04 22:40 Abdomen/GI: Inspection: abdomen appears normal, Bowel sounds: active, all cp quadrants, Palpation: soft, in all quadrants, moderate abdominal tenderness, in the anterior aspect of left lateral abdomen, posterior aspect of left lateral abdomen, anterior aspect of right lateral abdomen and posterior aspect of right lateral abdomen, rebound tenderness, is not appreciated, involuntary guarding, is not appreciated, cp 01/05 02:01/04 22:40 Back: CVA tenderness, is absent, cp cp 01/05 02:01/04 22:40 Skin: no rash present. cp cp 01/05 02:01/04 22:40 Neuro: Orientation: to person, place \T\ time. Mentation: is normal, Motor: cp is normal, Sensation: is normal, Gait: is steady, at a normal pace, without difficulty, cp
--- NOTE | 2023-01-04 02:48 | ER ---
Nurse's Notes [facility] Name: Ashwin Engel Age: 62 yrs Sex: Male : 1960 Arrival Date: 01/03/2023 Time: 22:05 Bed 19 Private MD: Diagnosis: Calculus of ureter-right Presentation: 01/03 22:18 Chief complaint: Patient states: was here on Tuesday and diagnosis with kidney stone to as6 right side. pt c/o he still hasn't passed the stone and not has some left flank pain. Coronavirus screen: At this time, the client does not indicate any symptoms associated with coronavirus-19. Ebola Screen: No symptoms or risks identified at this time. Initial Sepsis Screen: Does the patient meet any 2 criteria? No. Patient's initial sepsis screen is negative. Does the patient have a suspected source of infection? No. Patient's initial sepsis screen is negative. Risk Assessment: Do you want to hurt yourself or someone else? Patient reports no desire to harm self or others. Onset of symptoms was December 31, 2022. 22:18 Method Of Arrival: Ambulatory as6 22:18 Acuity: CAESAR 3 as6 Historical: - Allergies: 22:21 No Known Allergies; as6 - PMHx: 22:21 Asthma; Salazar's Palsy; colonoscopy; EGD; Factor 7; hiatal hernia; inguinal hernia; right as6 knee surgery; ulnar nerve transposition; - Immunization history:: Client reports having NOT received the Covid vaccine. - Social history:: Smoking status: Patient denies any tobacco usage or history of. Screenin/16 00:07 Abuse screen: Denies threats or abuse. Denies injuries from another. Nutritional aa9 screening: No deficits noted. Tuberculosis screening: No symptoms or risk factors identified. 02:59 [facility] ED Fall Risk Assessment (Adult) History of falling in the last 3 months, aa9 including since admission No falls in past 3 months (0 pts) Confusion or Disorientation No (0 pts) Intoxicated or Sedated No (0 pts) Impaired Gait No (0 pts) Mobility Assist Device Used No (0 pt) Altered Elimination No (0 pt) Score/Fall Risk Level 0 - 2 = Low Risk Oriented to surroundings, Maintained a safe environment, Educated pt \\T\\ family on fall prevention, incl call for assistance when getting out of bed. Assessment: 01/03 23:45 General: Appears uncomfortable, Behavior is cooperative, anxious. Pain: Complains of aa9 pain in right kidney, right testicle Pain currently is 6 out of 10 on a pain scale. Neuro: Level of Consciousness is awake, alert, obeys commands, Oriented to person, place, time, situation. Cardiovascular: Patient's skin is warm and dry. Respiratory: Airway is patent Respiratory effort is even, unlabored. GI: Patient currently denies diarrhea, nausea. 23:50 Reassessment: Ultra sound at bedside. 9 01/04 01:48 Reassessment: Patient appears in no apparent distress at this time. Patient and/or aa9 family updated on plan of care and expected duration. Pain level reassessed. Patient is alert, oriented x 3, equal unlabored respirations, skin warm/dry/pink. 01:53 Reassessment: Patient appears in no apparent distress at this time. pain level aa9 reassessed, pt states "Its tolerable right now, I don't think I need any medication at the moment.". 02:58 Reassessment: Patient appears in no apparent distress at this time. Patient and/or aa9 family updated on plan of care and expected duration. Pain level reassessed. Patient is alert, oriented x 3, equal unlabored respirations, skin warm/dry/pink. Patient states feeling better. Vital Signs: 01/03 22:18 BP 148 / 94; Pulse 80; Resp 18 S; Temp 97.2(TE); Pulse Ox 97% on R/A; Weight 107.05 kg as6 (R); Height 6 ft. 0 in. (R); Pain /; 01/04 00:30 BP 154 / 80; Pulse 67; Resp 17 S; Pulse Ox 94% on R/A; aa9 01:32 BP 127 / 78; Pulse 69; Resp 17 S; Pulse Ox 97% on R/A; aa9 02:58 BP 132 / 74; Pulse 70; Resp 17; Temp 98.2; Pulse Ox 97% on R/A; aa9 01/03 22:18 Body Mass Index 32.01 (107.05 kg, 182.88 cm) as6 01/03 22:18 Pain Scale: Adult as6 ED Course: 01/03 22:08 Patient arrived in ED. ja2 22:12 Remington Pineda PA is PHCP. cp 22:12 Primo Guzman MD is Attending Physician. cp 22:21 Triage completed. as6 22:23 Arm band placed on. as6 22:31 Urinalysis W/Microscopic Sent. as6 23:31 Mar Covarrubias, RN is Primary Nurse. aa9 23:44 Inserted saline lock: 20 gauge in right antecubital area, using aseptic technique. aa9 Blood collected. 23:45 CBC with Diff Sent. aa9 23:45 CMP Sent. aa9 23:45 Lipase Sent. aa9 01/04 00:00 XRAY KUB In Process Unspecified. EDMS 00:06 Patient has correct armband on for positive identification. Bed in low position. Side aa9 rails up X 1. Adult w/ patient. 00:39 US Rp Exam Complete In Process Unspecified. EDMS 00:39 US Scrotum Testicles In Process Unspecified. EDMS 01:51 CT Stone Protocol In Process Unspecified. EDMS 02:46 Sunny Pedraza MD is Referral Physician. cp 02:58 No provider procedures requiring assistance completed. IV discontinued, intact, aa9 bleeding controlled, No redness/swelling at site. Pressure dressing applied. Administered Medications: 00:15 Drug: Ondansetron IVP 4 mg Route: IVP; Site: right antecubital; aa9 02:58 Follow up: Response: No adverse reaction aa9 00:30 Drug: morphine IVP or IV 4 mg Route: IVP; Infused Over: 4 mins; Site: right antecubital;aa9 02:58 Follow up: Response: No adverse reaction aa9 00:30 Drug: NS 0.9% IV 500 ml Route: IV; Rate: bolus; Site: right antecubital; aa9 02:59 Follow up: Response: No adverse reaction; IV Status: Completed infusion; IV Intake: aa9 500ml 00:55 Drug: NS 0.9% IV 500 ml Route: IV; Rate: 100 ml/hr; Site: right antecubital; aa9 03:00 Follow up: Response: No adverse reaction; IV Status: Completed infusion; IV Intake: aa9 300ml 01:31 Drug: Rocephin IV 1 grams Route: IV; Rate: calculated rate; Site: right antecubital; aa 02:59 Follow up: Response: No adverse reaction; IV Status: Completed infusion; IV Intake: [id number] 02:57 Drug: HYDROcodone-acetaminophen PO 10 mg-325 mg 1 tabs Route: PO; 02:57 Follow up: Response: No adverse reaction 02:57 Drug: Flomax PO 0.4 mg Route: PO; :57 Follow up: Response: No adverse reaction aa9 Medication: 02:59 VIS not applicable for this client. aa9 Intake: 02:59 IV: 10ml; Total: 10ml. 02:59 IV: 500ml; Total: 510ml. 03:00 IV: 300ml; Total: 810ml. aa9 Outcome: 02:47 Discharge ordered by MD. cp 02:58 Discharged to home ambulatory, with family. 02:58 Condition: stable 02:58 Discharge instructions given to patient, Instructed on discharge instructions, follow up and referral plans. medication usage, Demonstrated understanding of instructions, follow-up care, medications, Prescriptions given X 1. 02:59 Patient left the ED. aa9 Signatures: Dispatcher [employer] EDMS Remington Pineda PA PA cp Alexander, Jessica ja2 Slawson, Ashby, RN RN as6 Mar Covarrubias RN RN aa9
[2023-01-04] MEDS ORDERED: HYDROCODONE/APAP 10/325 TAB ONE (02:59)
[2023-01-04] MEDS ORDERED: TAMSULOSIN 0.4 MG SR CAP ONE (02:59)
[2023-01-04 03:31] VITALS: O2SAT 97
[2023-01-04 03:33] VITALS: BP 132/74; TEMP 98.2
--- NOTE | 2023-01-04 15:45 | RAD REPORT ---
EXAM DESCRIPTION: CT - Stone Protocol - 01/04/2023 6:37 am CLINICAL HISTORY: The patient is 62 years old and is Male; FLANK PAIN TECHNIQUE: Axial computed tomography images of the abdomen and pelvis without intravenous contrast. Sagittal and coronal reformatted images were created and reviewed. This CT exam was performed usi ng one or more of the following dose reduction techniques: automated exposure control, adjustment o f the mA and/or kV according to patient size, and/or use of iterative reconstruction technique. COMPARISON: CT abdomen and pelvis without contrast December 31, 2022. FINDINGS: Lung bases: Unremarkable. No mass. No consolidation. Mediastinum: Small hiatal hernia. ABDOMEN: Liver: Unremarkable. Gallbladder and bile ducts: Unremarkable. No calcified stones. No ductal dilation. Pancreas: Unremarkable. No ductal dilation. Spleen: Unremarkable. No splenomegaly. Adrenals: Unremarkable. No mass. Kidneys and ureters: 3 mm stone in the proximal to mid right ureter, similar to prior. No hydrour eteronephrosis. Mild right perinephric stranding. Mild bilateral perinephric stranding. Simple cyst in the left kidney. No follow-up imaging is recommended. Stomach and bowel: Unremarkable. No obstruction. No mucosal thickening. PELVIS: Appendix: No findings to suggest acute appendicitis. Bladder: Unremarkable. Reproductive: Unremarkable as visualized. ABDOMEN and PELVIS: Intraperitoneal space: Unremarkable. No free air. No significant fluid collection. Bones/joints: No acute fracture. No dislocation. Soft tissues: Unremarkable. Vasculature: Unremarkable. No abdominal aortic aneurysm. Lymph nodes: Unremarkable. No enlarged lymph nodes. IMPRESSION: 3 mm stone in the proximal to mid right ureter, similar to prior. No hydroureteronephros is. Mild right perinephric stranding. Electronically signed by: Luis Manuel Tidwell MD 01/04/2023 2:27 AM CDT Due to temporary technical issues with the PACS/Fluency reporting system, reports are being signed by the in house radiologist without review as a courtesy to ensure prompt reporting. The interpreting r adiologist is fully responsible for the content of the report.
--- NOTE | 2023-01-04 15:47 | RAD REPORT ---
EXAM DESCRIPTION: RAD - Abdomen 1 View (KUB) - 01/03/2023 11:58 pm CLINICAL HISTORY: 62-year-old male with flank pain. TECHNIQUE: Single supine view of the abdomen was obtained. COMPARISON: CT abdomen and pelvis 12/31/2022. FINDINGS: Gas is seen within normal caliber large bowel. Diffuse paucity of small bowel gas. No free air is identified, however limited by supine technique. There are no abnormal calcifications overlying the projection of the bilateral renal pelvis. Previous ly identified ureteral calculus on the right is not identified on the current radiograph. Multiple ph leboliths are present within the pelvis. The possibility of a superimposed ureteral or bladder calcul us cannot be excluded. Further evaluation with CT is recommended. The osseous structures are within n ormal limits. The lung bases are clear. IMPRESSION: No abnormal calcifications overlying the projection of the bilateral renal pelvis. Previ ously identified ureteral calculus on the right is not identified on the current radiograph. Multiple pelvic phleboliths for which a superimposed bladder or ureteral calculus cannot be excluded. Further evaluation with CT is recommended. Electronically signed by: Miranda Macario MD 01/04/2023 12:30 AM CDT Due to temporary technical issues with the PACS/Fluency reporting system, reports are being signed by the in house radiologist without review as a courtesy to ensure prompt reporting. The interpreting r adiologist is fully responsible for the content of the report.
--- NOTE | 2023-01-04 15:49 | RAD REPORT ---
EXAM DESCRIPTION: US - Renal Ultrasound-Complete - 01/04/2023 12:38 am CLINICAL HISTORY: Flank pain TECHNIQUE: Real-time complete ultrasound of the retroperitoneum with image documentation. COMPARISON: Abdomen pelvis CT dated 12/31/2022 FINDINGS: Right kidney: The right kidney measures 9 x 4.7 x 4.5 cm. 3 mm echogenic focus at the upper pole which may represent a calculus. No hydronephrosis. Left kidney: The left kidney measures 9.2 x 6.3 x 4.6 cm. No calculi. No hydronephrosis. Ther e is a 1.9 x 1.6 x 2.1 cm anechoic/simple cyst at the midpole. No follow-up imaging is necessary. Bladder: The urinary bladder is partially decompressed. IMPRESSION: No residual hydronephrosis on the right. The 3 mm proximal to mid right ureteral calcu cesia seen on the CT is not delineated on this ultrasound. Electronically signed by: Yuriy Nunez MD 01/04/2023 1:45 AM CDT Due to temporary technical issues with the PACS/Fluency reporting system, reports are being signed by the in house radiologist without review as a courtesy to ensure prompt reporting. The interpreting r adiologist is fully responsible for the content of the report.
--- NOTE | 2023-01-04 15:52 | RAD REPORT ---
EXAM DESCRIPTION: US - Scrotum Testicles - 01/04/2023 12:38 am CLINICAL HISTORY: PAIN TECHNIQUE: Real-time ultrasound of the scrotum with color Doppler and image documentation. COMPARISON: No relevant prior studies available. FINDINGS: Right testicle: The right testis measures 4 x 2.4 x 3 cm. Homogeneous echotexture. N o torsion. Left testicle: The left testis measures 3.9 x 2.8 x 2.8 cm. Homogeneous echotexture. No torsion . Epididymides: Unremarkable. Scrotum: Trace bilateral hydroceles. Punctate scrotolith on the right. IMPRESSION: Normal testicular flow bilaterally without sonographic evidence for torsion. Electronically signed by: Yuriy Nunez MD 01/04/2023 1:50 AM CDT Due to temporary technical issues with the PACS/Fluency reporting system, reports are being signed by the in house radiologist without review as a courtesy to ensure prompt reporting. The interpreting r adiologist is fully responsible for the content of the report.
== END 2023-01-04 02:59 | disposition home or self-care (01) ==
LOC: ER 22:05
DX: N20.1 Calculus of ureter (principal)
CPT/HCPCS: 96365; 96361; 87088; 85025; 81001; 87086; 36415; 83690; 80053; 76377; 74176; 74018; 76870; 76770; 96375; 99284; J2405; J7030; J0696

== ENCOUNTER 2023-01-11 07:58 | Day surgery (SDC) | payer BC ==
--- NOTE | 2023-01-07 13:28 | EKG ---
Test Date: 2023-01-06 Test Time: 09:32:30 Python Developer: STEFAN MEASUREMENT RESULTS: Intervals: Rate: 65 OH: 150 QRSD: 84 QT: 384 QTc: 399 [place]: P: 46 OH: 150 QRS: 15 T: 57 INTERPRETIVE STATEMENTS: Normal sinus rhythm Normal ECG Compared to ECG 12/25/2018 21:38:32 No significant changes Electronically Signed On 01-07-23 13:26:19 CDT by Jer Pate
[2023-01-11] MEDS ORDERED: NA CHLORIDE 0.9% 1,000 ML ONE (08:36)
[2023-01-11] MEDS ORDERED: Ringers Lactate 1,000 ML IV ONE (08:42)
[2023-01-11] MEDS ORDERED: FENTANYL CITR 100 MCG/2 ML ONE ×2 (08:57→10:48)
[2023-01-11] MEDS ORDERED: MIDAZOLAM HCL 2 MG/2 ML INJ ONE (10:18)
[2023-01-11] MEDS ORDERED: propofoL 200 MG/20 ML VIAL IV ONE (10:50)
[2023-01-11] MEDS ORDERED: ONDANSETRON 4 MG/2 ML VIAL ONE (10:52)
[2023-01-11] MEDS ORDERED: LIDOCAINE 1% MPF 5 ML VIAL ONE (10:52)
[2023-01-11] MEDS: CEFAZOLIN SODIUM 2 GM/VIAL ONE ×2 (11:21→11:37)
[2023-01-11] MEDS ORDERED: Ringers Lactate 500 ML IV ONE (12:21)
--- NOTE | 2023-01-11 12:24 | RAD REPORT ---
EXAM DESCRIPTION: RAD - Urethrocystogrphy Retrograde - 01/11/2023 12:12 pm CLINICAL HISTORY: RETROGRADE W STENT PLCMNT COMPARISON: No comparisons FINDINGS: Total fluoro time: 0.19 minutes
[2023-01-11] MEDS ORDERED: HYDROMORPHONE HCL 1 MG/ML INJ ONE (12:41)
[2023-01-11] MEDS ORDERED: HYDROCODONE/APAP 5/325 MG TAB PO PRN (12:51)
[2023-01-11] MEDS ORDERED: PHENAZOPYRIDINE 100MG TAB PO ONE ×2 (12:51→13:33)
[2023-01-11 12:56] VITALS: O2SAT 97
[2023-01-11] MEDS ORDERED: HYDROCODONE/APAP 5/325 MG TAB ONE (13:34)
--- NOTE | 2023-01-11 13:35 | OP ---
Surgeon: SIVAKUMAR PLUMMER Preoperative Diagnoses: 1.Right ureterolithiasis. 2.Factor VII deficiency. Postoperative Diagnoses: 1.Right ureterolithiasis. 2.Factor VII deficiency. 3.Impacted mid distal right ureteral calculus. Principle Procedures: 1.Cystoscopy. 2.Right retrograde pyelography. 3.Right ureteral stent placement. Indication For Procedure: Mr. Engel presented to the [facility] having been seen in the emergenc y department with a 2 to 3 mm proximal ureteral obstructing calculus causing pain. After extensive c ounseling, he elected a trial of passage, but within 2 weeks of that trial, he presented to the emerg ency department on at least 2 additional occasions with pain and ultimately saw me in followup unable to manage the pain and thus we agreed for operative presentation today. Because the patient has fac tor VII deficiency and had not been seen by the property adjuster in several years, we could not get preop erative clearance/approval for them to treat him with factor VII in advance of any potential more inv asive approaches to include ureteroscopy with laser lithotripsy; so only cystoscopy with right ureter al stent could be performed today. Procedure In Detail: The patient was consented in the preoperative holding area before being transfe rred to the operative suite where general anesthesia was induced. He was given Ancef IV antimicrobia l prophylaxis and pneumo boots were provided for DVT prophylaxis. He was placed in the lithotomy pos ition, padded and secured to the table appropriately, and his genitalia were prepped with Hibiclens. He was draped in standard fashion, and a 22-Cambodian rigid cystoscope was used to traverse the urethra and into the bladder with ease. The bladder was decompressed of fluid and urine and then refilled w ith sterile saline. The bladder was briefly surveyed and not found to have any papillary mucosal les ions, foreign bodies, or stones. The ureteral orifices were orthotopic in location and mildly stenot ic. As a result, I utilized the tip of the Sensor wire to gain access into the right ureteral orific e, and over the Sensor wire, passed a 5-Cambodian ureteral access catheter just into the orifice. A ret rograde pyelogram was then performed. Right retrograde pyelography: Using a 70:30 mixture of Omnipaque and saline, contrast was injected v ia the lumen of the 5-Cambodian ureteral access catheter and did propagate up the distal ureter to a poi nt of obstruction and subsequent dilation of the ureter extending into the mid ureter and proximal ur eter before entering a mildly dilated renal pelvis with some mild caliectasis. I then passed a Senso r wire via the 5-Cambodian ureteral access catheter and it did meet a point of obstruction in the mid di stal ureter at the ureteral transition from normal to ureteronephrotic. With some manipulation of th e wire, I was able to eventually get it to pass beyond the point of obstruction and navigate up into the proximal ureter and enter the renal pelvis and calices where a coil was observed fluoroscopically . Over the wire, I then was able to successfully pass a 6-Cambodian x 26 cm double-J ureteral stent wit h some resistance passing it beyond the point of obstruction in the mid distal ureter. A coil was fo rmed fluoroscopically in the upper pole of the kidney and one cystoscopically was formed in the [facility]. I then decompressed his bladder of fluid and urine and removed the cystoscope. He was then take n out of the lithotomy position, awakened from general anesthesia, transferred to a stretcher, and th en transferred to the recovery room in good condition. Complications: None. Discharge Disposition: He will require Hematology evaluation before they would be willing to provide factor VII in preparation for any more invasive surgical procedures. As a result, this consultation will need to be completed and he will then be rescheduled for definitive surgical management via ure teroscopy and laser lithotripsy. The stone is radiolucent and so not amenable to ESWL as expected gi ashley its small size. Given the patient's attitude toward me as a physician, he may elect to seek care from another urologist at his discretion. BETY/LEIA Voice ID: [id number] Report ID: [id number]
[2023-01-11] MEDS ORDERED: KETOROLAC 30 MG/ML INJ ONE (13:59)
[2023-01-11 14:05] VITALS: BP 122/83; TEMP 97.5
[2023-01-11] MEDS ORDERED: KETOROLAC 30 MG/ML INJ IV ONE ×2 (14:05→14:10)
== END 2023-01-11 14:45 | disposition home or self-care (01) ==
LOC: OR 07:58
PROVIDERS: ATTEND Urology
PROC: 0T768DZ Dilation of Right Ureter with Intraluminal Device, Via Natural or Artificial Opening Endoscopic (ICD-10-PCS; principal; 2023-01-11 11:00)
DX: N20.1 Calculus of ureter (principal); D68.2 Hereditary deficiency of other clotting factors
CPT/HCPCS: 93005; 74450; 51610; 52332; J2704; J2001; J2250; J3010 ×2; J1170; J2405; J7120; J7030

== ENCOUNTER 2023-03-29 13:36 | Emergency (ER) | payer BC ==
--- OUTSIDE RECORDS SUMMARY | 2023-03-29 13:41 | XMS REPORT | Continuity of Care Document ---
:1960 Author Organization [facility] t Address [address] [place] [address] [place] [id number] Care Team Providers Name Role Phone Fabian Langford Attending Clinician Unavailable Tobias Garcia DO Attending Clinician Kike Tompkins MD Attending Clinician Nidia Richard MD Attending Clinician [phone] NIDIA RICHARD Attending Clinician Unavailable Nicholas Cast MD Attending Clinician Curt Smart MD Attending Clinician Khanh Smith MD Attending Clinician Giancarlo Estrada MD Attending Clinician GIANCARLO ESTRADA Attending Clinician Unavailable KIKE TOMPKINS Admitting Clinician Unavailable Payers Payer Name Policy Type Policy Number Effective Date Expiration Date S ource Blue Cross 6 [id number] 2018 [facility] t Blue Shield of 00:00:00 - 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 - [facility] Ventral Ventral Problem Active Common hernia hernia [facility] Seasonal Allergic Problem Active Commo n allergic rhinitis, Spiri t rhinitis seasonal - [facility] Asthma Asthma Problem Active Common [facility] Herpes Herpes Problem Active Common labialis labialis [facility] [id number] 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 [facility] Esophageal Esophageal Problem Active C ommon hiatus hiatus [facility] hernia hernia [facility] Unilateral Inguinal Problem Active Com mon recurrent hernia Spirit simple recurrent - [facility] inguinal unilateral [facility] Mixed Hyperlipid Problem Active Commo n hyperlipid emia, Spirit emia mixed - [facility] Schatzki's Schatzki's Problem Active C ommon ring ring [facility] Gastro-eso Gastro-eso Problem Active C ommon phageal phageal Spirit reflux reflux - [facility] disease disease [facility] without [facility] Allergies, Adverse Reactions, Alerts Allergy Allergy Status Severity Reaction(s) Onset Inactive Treating Comm ents Source Name Type Date Date Clinician NO KNOWN Allergy Active [facility] Social History Social Habit Start Date Stop Date Quantity Comments Source History [facility] Transport Non-Med Medical Center History [facility] Places Medical Ce nter Lived History of Tobacco [facility] - Use [facility] Alcohol intake 2023-01-18 2023-01-18 Ex-drinker [facility] es 00:00:00 00:00:00 (finding) Medical Center Exposure to 2023-01-04 2023-01-14 Not sure [facility] SARS-CoV-2 (event) 00:00:00 10:11:00 Medica l Center History [facility] 2023-01-14 2023-01-14 [facility] 00:00:[address] History [facility] 2023-01-14 2023-01-14 2 [facility] Housing Unable to 00:00:00 00:00:00 Medical Center Pay History [facility] 2023-01-14 2023-01-[address] [facility] Housing Homeless 00:00:00 00:00:00 Medical Center Last Year Tobacco use and 2023-01-11 2023-01-[address] [facility] exposure 00:00:00 00:00:00 non-user Medical Center Sex Assigned At 1960 [address] [facility] [address] [facility] k[facility] 00:00:00 00:00:00 Medical Center Smoking Status Start Date Stop Date Source Never smoked tobacco [facility] Medications Ordered Filled Start Stop Current Ordering Indication Dosage Frequency Signature Comments Components Source Medication Medication Date Date Medication? Clinician (SIG) Name Name traMADoL 2022- No 50mg Take [address] [facility] [address] (ULTRAM) 50 01-15 tablet (50 L ukes mg tablet 00:00: 23:59 mg total) Me dical 00 :00 by mouth Center every 6 (six) hours as needed for Pain for up to 5 days. Max Daily Amount: 200 mg oxybutynin 2022- No 5mg Take [address] [facility] (DITROPAN) 01-15- tablet (5 Renetta es 5 MG tablet 00:00: 23:59 mg total) Medical 00 :00 by mouth 3 Center (three) times daily as needed (bladder spasms) for up to 5 days. phenazopyri 2022- No 95mg Take [address] [facility] dine 01-15- tablet (95 [facility] (PYRIDIUM) 00:00: 23:59 mg total) M edical 95 MG 00 :00 by mouth 3 Center tablet (three) times daily as needed for Pain (burning with urination) for up to 5 days. traMADoL 2022- No 50mg Take [address] [facility] (ULTRAM) 50 01-15- tablet (50 L ukes mg tablet 00:00: 23:59 mg total) Me dical 00 :00 by mouth Center every 6 (six) hours as needed for Pain for up to 5 days. Max Daily Amount: 200 mg oxybutynin 2022- No 5mg Take [address] [facility] (DITROPAN) 01-15- tablet (5 Renetta es 5 MG tablet 00:00: 23:59 mg total) Medical 00 :00 by mouth 3 Center (three) times daily as needed (bladder spasms) for up to 5 days. phenazopyri 2022- No 95mg Take [address] [facility] dine 01-15 tablet (95 [facility] (PYRIDIUM) 00:00: 23:59 mg total) M edical 95 MG 00 :00 by mouth 3 Center tablet (three) times daily as needed for Pain (burning with urination) for up to 5 days. sulfamethox 2022- No 160mg{t Q.5D Take [address] azole-trime 01-1530 rimetho tablet Farhana kes thoprim 00:00: 23:59 prim} (160 mg of Me dical (BACTRIM 00 :00 trimethopr Cente r DS) 800-160 im total) mg per by mouth tablet in the morning and 1 tablet (160 mg of trimethopr im total) before bedtime. Do all this for 5 doses. sulfamethox 2022- No 160mg{t Q.5D Take [address] azole-trime 01-15 rimetho tablet Farhana kes thoprim 00:00: 23:59 prim} (160 mg of Me dical (BACTRIM 00 :00 trimethopr Cente r DS) 800-160 im total) mg per by mouth tablet in the morning and 1 tablet (160 mg of trimethopr im total) before bedtime. Do all this for 5 doses. methylPREDN methylPREDN 2021- No 1{table methylPRED ISolone 4 ISolone 4 08-22 t_with_ NISolone 4 MG MG 00:00: 00:00 food_or MG 00 :00 _milk} methylPREDN methylPREDN 2021- No 1{table ISolone 4 ISolone 4 08-22 t_with_ MG MG 00:00: 00:00 food_or 00 :00 _milk} Symbicort Symbicort Yes Fabian 2 puffs Common [facility] Lipitor Lipitor Yes Fabian 1 tablet Com [facility] Vitamin C Vitamin C Yes Fabian not Com [facility] defined [facility] Aspirin Aspirin Yes Fabian 1 tablet Com mon [facility] Valtrex Valtrex Yes Fabian 1 tablet Com mon [facility] Ventolin Ventolin Yes Fabian 2 puffs as Common HFA HFA [facility] needed [facility] Centrum Men Centrum Men Yes Fabian not Common [facility] defined [facility] Symbicort Symbicort No 2{puffs BID Symbicort 160-4.5 [...] dose 2020-06-06 Completed [facility] 08:14:00 - [facility] Afluria single dose Afluria single dose 2020-06-06 Completed [facility] 08:14:00 - [facility] Afluria single dose Afluria single dose 2020-06-06 Completed [facility] 08:14:00 - [facility] Afluria Afluria 2018-05-29 Completed [facility] 15:52:00 - [facility] Afluria Afluria 2018-05-29 Completed [facility] 15:52:00 - [facility] Afluria Afluria 2018-05-29 Completed [facility] 15:52:00 - [facility] Vital Signs Vital Name Observation Time Observation Value Comments Source HEIGHT 2023-01-14 10:14:00 182.9 cm WEIGHT 2023-01-14 10:14:00 102.331 kg HEIGHT 2023-01-14 10:14:00 182.9 cm WEIGHT 2023-01-14 10:14:00 102.331 kg HEIGHT 2023-01-14 10:14:00 182.9 cm WEIGHT 2023-01-14 10:14:00 102.331 kg HEIGHT 2023-01-11 16:23:00 182.9 cm HEIGHT 2023-01-11 16:23:00 182.9 cm HEIGHT 2023-01-11 16:23:00 182.9 cm Heart rate 2023-01-15 11:16:53 91 /min [facility] Respiratory rate 2023-01-15 11:16:53 16 /min [facility] Oxygen saturation in 2023-01-15 11:16:53 92 /min [facility] Arterial blood by Medical Ce nter Pulse oximetry Body temperature 2023-01-15 11:16:42 36.61 Vikki [facility] Systolic blood 2023-01-15 11:15:30 128 mm[Hg] [facility] Diastolic blood 2023-01-15 11:15:30 76 mm[Hg] [facility] Body height 2023-01-14 10:14:00 182.9 cm [facility] Body weight 2023-01-14 10:14:00 102.331 kg [facility] BMI 2023-01-14 10:14:00 30.60 kg/m2 [facility] Procedures Procedure Date / Time Performed Performing Clinician [facility] e STONE ANALYSIS 2023-01-14 20:32:34 Khanh Smith Jordy [facility] CYSTOURETEROSCOPY, WITH 2023-01-14 18:46:00 Luis Khanh Spence [facility] LITHOTRIPSY, CALCULUS Medical Ce nter REMOVAL, AND URETERAL STENT INSERTION CBC W/PLT COUNT & AUTO 2023-01-14 11:58:00 [facility] BASIC METABOLIC PANEL 2023-01-14 11:58:00 [facility] CBC W/PLT COUNT & AUTO 2023-01-14 11:58:00 [facility] BLOOD CULTURE 2023-01-14 11:24:00 [facility] PROTHROMBIN TIME/INR 2023-01-14 11:24:00 [facility] PT/APTT 2023-01-14 11:24:00 [facility] FACTOR 7 ACTIVITY 2023-01-14 11:24:[address] [facility] URINE CULTURE 2023-01-14 10:17:00 [facility] URINALYSIS W/ REFLEX 2023-01-14 10:17:00 [facility] ABDOMEN/PELVIS WITHOUT 2023-01-11 18:09:00 Giancarlo Estrada [facility] IV CONTRAST [facility] URINE CULTURE 2023-01-11 17:48:00 Giancarlo Estrada [facility] URINALYSIS W/ REFLEX 2023-01-11 17:48:00 Giancarlo Estrada [facility] URINE [facility] CBC W/PLT COUNT & AUTO 2023-01-11 17:40:00 Giancarlo Estrada [facility] COMPREHENSIVE METABOLIC 2023-01-11 17:40:00 Giancarlo Estrada [facility] PT/APTT 2023-01-11 17:40:00 Giancarlo Estrada [facility] TYPE AND SCREEN, 2023-01-11 17:40:00 Giancarlo Estrada [facility] S t [facility] AUTOMATED [facility] Center CBC W/PLT COUNT & AUTO 2023-01-11 17:40:00 Giancarlo Estrada [facility] DIFFERENTIAL [facility] Center Plan of Care Planned Activity Planned Date Details Comments Source Future Scheduled 2024-01-[address] [facility] Test 00:00:00 Counseling and Screening Med ical Center (12+) [code = Tobacco Cessation Counseling and Screening (12+)] Future Scheduled 2024-01-[address] [facility] Test 00:00:00 Counseling and Screening Med ical Center (12+) [code = Tobacco Cessation Counseling and Screening (12+)] Future Scheduled 2023-04-22 INFLUENZA VACCINE (Season [facility] Test 00:00:00 Ended) [code = INFLUENZA Med ical Center VACCINE (Season Ended)] Future Scheduled 2023-04-22 Influenza Vaccine (#1) [facility] 00:00:00 [code = Influenza Vaccine Tx dical Center (#1)] Future Scheduled 2022-08-[address] [facility] Test 00:00:00 (12+) [code = DEPRESSION Med ical Center SCREENING (12+)] Future Scheduled 2022-08-[address] [facility] Test 00:00:00 (12+) [code = DEPRESSION Med ical Center SCREENING (12+)] Future Scheduled 2012 SHINGLES VACCINES ([address] [facility] 00:00:00 [facility]) [facility] Future Scheduled 2012 SHINGLES VACCINES ([address] [facility] 00:00:00 2) [facility] of 2)] Future Scheduled 1997 Lipid panel (procedure) [facility] Test 00:00:00 [code = 62109861] Medical Ce nter Future Scheduled 1997 Lipid panel (procedure) [facility] Test 00:00:00 [code = 38313148] Medical Ce nter Future Scheduled 1981 DTAP/TDAP/TD VACCINES ([address] [facility] Test 00:00:00 - Tdap) [code = Medical Cent er DTAP/TDAP/TD VACCINES (1 - Tdap)] Future Scheduled 1981 DTAP/TDAP/TD VACCINES ([address] [facility] Test 00:00:00 - Tdap) [code = Medical Cent er DTAP/TDAP/TD VACCINES (1 - Tdap)] Future Scheduled 1980 HEPATITIS C SCREENING [facility] 00:00:00 [code = HEPATITIS C Medical Center SCREENING] Future Scheduled 1980 HEPATITIS C [facility]CRE[facility]ING [facility] 00:00:00 [code = HEPATITIS C Medical Center SCREENING] Future Scheduled [address] [facility] 00:00:00 virus screening Medical Cent er (procedure) [code = 545360237] Future Scheduled 1960 COVID-19 VACCINE (#1) [facility] 00:00:00 [code = COVID-19 VACCINE Med ical Center (#1)] Future Scheduled 1960 COVID-19 VACCINE (#1) [facility] 00:00:00 [code = COVID-19 VACCINE Med ical Center (#1)] Future Scheduled 1962 CT Colonography (combo) [facility] Test 00:00:00 [code = CT Colonography [facility] (combo)] Future Scheduled 1962 Screening for malignant [facility] Test 00:00:00 neoplasm of colon Medical Ce nter (procedure) [code = 948221610] Future Scheduled 1962 Screening for malignant [facility] Test 00:00:00 neoplasm of colon Medical Ce nter (procedure) [code = 212382096] Future Scheduled 1962 Screening for malignant [facility] Test 00:00:00 neoplasm of colon Medical Ce nter (procedure) [code = 136232738] Future Scheduled 1962 Screening for malignant [facility] Test 00:00:00 neoplasm of colon Medical Ce nter (procedure) [code = 337328597] Future Scheduled 1960 Sigmoidoscopy [code = [facility] 00:00:00 Sigmoidoscopy] Medical Cente r Future Scheduled 1962 CT Colonography (combo) [facility] Test 00:00:00 [code = CT Colonography [facility] (combo)] Future Scheduled 1962 Screening for malignant [facility] Test 00:00:00 neoplasm of colon Medical Ce nter (procedure) [code = 485969458] Future Scheduled 1962 Screening for malignant [facility] Test 00:00:00 neoplasm of colon Medical Ce nter (procedure) [code = 387699719] Future Scheduled 1962 Screening for malignant [facility] Test 00:00:00 neoplasm of colon Medical Ce nter (procedure) [code = 562814176] Future Scheduled 1962 Screening for malignant [facility] Test 00:00:00 neoplasm of colon Medical Ce nter (procedure) [code = 655613726] Future Scheduled 1960 Sigmoidoscopy [code = [facility] 00:[facility]:00 [facility] End Encounter Admission Attending Care Care Encounter Source Date/Time Date/Time Type Type Clinicians Facility Department ID 2023-01-14 Outpatient Langford, [facility] [id number] Common 08:38:00 Fabian [id number] [facility] 2022-12-23 Outpatient Langford, [facility] [id number] Common 08:44:00 Fabian [id number] [facility] 2022-12-21 Outpatient Langford, [facility] [id number] Common 10:12:00 Fabian [id number] [facility] 2021-09-16 Outpatient Langford, [facility] [id number] Common 11:17:22 Fabian [id number] [facility] 2021-09-16 Outpatient Langford, [facility] [id number] Common 11:08:33 Fabian [id number] [facility] 2021-09-16 Outpatient Lang[facility], [facility] [id number] Common 11:08:05 Fabian [id number] [facility] 2023-01-14 2023-01-15 Emergency Tobias Garcia [facility] [id number] 10:21:00 15:15:00 [facility] 2023-01-14 2023-01-15 Outpatient ER [facility] Emergency [id number] SLE 10:21:00 15:15:00 [facility] 2023-01-14 2023-01-15 Emergency ER Tobias Garcia [facility] [id number] [facility] 10:21:00 15:15:00 Kike Tompkins katt [facility] 2023-01-14 2023-01-14 Anesthesia Nicholas Cast [facility] [id number] 19:09:00 20:56:00 Event Curt Smart [facility] 2023-01-14 2023-01-14 Anesthesia Segun Nicholas [facility] [id number] 19:09:00 20:56:00 Event Curt Smart [facility] 2023-01-14 2023-01-14 Surgery Link, [facility] [id number] 18:05:00 20:24:00 [facility] 2023-01-14 2023-01-14 Surgery Link, [facility] [id number] 18:05:00 20:24:00 [facility] 2023-01-14 2023-01-14 Travel [facility] [id number] [facility] 00:[facility]00 00:00:00 [facility] 2023-01-14 2023-01-14 Travel [facility] [id number] [facility] 00:[facility]00 00:00:00 [facility] 2023-01-11 2023-01-11 Emergency Sean, [facility] [id number] 16:45:00 20:11:00 [facility] 2023-01-11 2023-01-11 [facility] [id number] [facility] 16:45:00 20:11:00 GIANCARLO 2023-01-11 2023-01-11 Emergency ER Surles, [facility] [id number] 16:45:00 20:11:00 [facility] 2023-01-11 2023-01-11 Travel [facility] [id number] [facility] 00:[facility]:00 00:00:00 [facility] 2023-01-11 2023-01-11 Travel [facility] [id number] [facility] 00:[facility]00 00:00:00 [facility] 2021-10-09 2021-10-09 (TEL) STLMLC STLMLC [id number] Co mmon 00:00:00 00:00:00 [facility] 2021-08-23 2021-08-23 (TEL) STLMLC STLMLC [id number] Co mmon 00:00:00 00:00:00 [facility] 2021-08-22 2021-08-22 (TEL) STLMLC STLMLC [id number] Co mmon 00:00:00 00:00:00 [facility] 2020-06-06 2020-06-06 Outpatient STLMLC STLMLC [id number] Common 00:00:00 00:00:00 [facility] 2020-02-07 2020-02-07 [id number] Common 08:00:00 08:00:00 [place] [address] [facility] 2019-12-14 2019-12-14 [facility] [id number] Common 13:25:00 13:25:00 [place] [address] [facility] 2019-10-11 2019-10-11 [facility] [id number] Common 08:17:00 08:17:00 [place] [address] [facility] 2019-10-09 2019-10-09 [facility] [id number] Common 14:30:00 14:30:00 [place] [address] [facility] 2018-08-08 2018-08-08 [facility] [id number] Common 08:45:00 08:45:00 t [facility] it [facility] Results Test Description Test Time Test Comments Results Result Comments Source STONE ANALYSIS 2023-01-22 13:07:52 Test Item Value Reference Range Interpretation Comme nts SPECIMEN SOURCE(QUEST) RIGHT URETERAL STONE (test code = 1773857) COMPONENT 1 (QUEST) (test See Below Ca lcium Oxalate Dihydrate code = 0449287) (Weddellite) 20% Calcium Oxalate Monohyd rate (Whewellite) 80 % This test was developed a nd its analytical perf ormance characteristics have been determined by [employer]. It has not been cleared or appr eliseo by theFDA. This as say has been validated pursu ant to the CLIA regulation s and is used for clinical pu rposes. COMPONENT 2 (QUEST) (test DNR code = 2498) Stone Weight (test code = 0.024 g 2654) CHANEL (test code = CHANEL) Performing Lab *JOHNATHON [facility], [address] [place] [id number] Vasile Medel MD [facility] [id number] 13:00:40 Test Item Value Reference Range Interpretation Comments CULTURE (BEAKER) (test No growth in 5 days code = 1095) BLOOD [id number] 13:00:40 Test Item Value Reference Range Interpretation Comments CULTURE (BEAKER) (test No growth in 5 days code = 1095) Urine [id number] 11:57:29 Test Item Value Reference Range Interpretation Comments Result (test code = No growth 6463-4) CHANEL (test code = If your patient does not CHANEL) have signs or symptoms of UTI, it is recommended NOT to treat, with the exception of and prior to urologic procedures. [facility] [id number] 11:57:29 Test Item Value Reference Range Interpretation Comments Result (test code = No growth 6463-4) CHANEL (test code = If your patient does not CHANEL) have signs or symptoms of UTI, it is recommended NOT to treat, with the exception of and prior to urologic procedures. [facility] 7 [id number] 14:40:58 Test Item Value Reference Range Interpretation Comments FACTOR VII ACTIVITY (BEAKER) (test 37.0 % 55.0-170.0 L code = 664) BASIC METABOLIC [id number] 12:29:54 Test Item Value Reference Range Interpretation Comments SODIUM (BEAKER) 139 meq/L 136-145 (test code = 381) POTASSIUM 4.2 meq/L 3.5-5.1 (BEAKER) (test code = 379) CHLORIDE (BEAKER) 104 meq/L 98-107 (test code = 382) CO2 (BEAKER) 26 meq/L 22-29 (test code = 355) BLOOD UREA 19 mg/dL 7-21 NITROGEN (BEAKER) (test code = 354) CREATININE 1.37 mg/dL 0.57-1.25 H (BEAKER) (test code = 358) GLUCOSE RANDOM 88 mg/dL 70-105 (BEAKER) (test code = 652) CALCIUM (BEAKER) 8.8 mg/dL 8.4-10.2 (test code = 697) EGFR (BEAKER) 60 Interpretatio n of eGFR (test code = mL/min/1.73 values Stage De scription 1092) sq m Result G1 Jordana l or high >=90 G2 Mildly decreased 60-89 G3a Mildl y to moderately 45-5 9 G3b Moderately to s everely 30-44 G4 Severl y decreased 15-29 G5 Kidney failure <15Reported eGF R is based on the CKD-EPI 2020 equation that d oes not use a race coefficientEsti mated GFR is not as accur ate as Creatinine Kiana hsieh in predicting glom erular filtration rate . Estimated GFR is not appl icable for dialysis patien ts Oncology Nurse ID - ADMINPT/[id number] 12:19:49 Test Item Value Reference Range Interpretation Comments PROTIME (BEAKER) (test code = 15.8 seconds 11.9-14.2 H 759) INR (BEAKER) (test code = 370) 1.34 <=5.90 PARTIAL THROMBOPLASTIN TIME 29.4 seconds 22.5-36.0 (BEAKER) (test code = 760) RECOMMENDED COUMADIN/WARFARIN INR THERAPY RANGESSTANDARD DOSE: 2.0 - 3.0 Includes: PROPHYLAXIS for venous thrombosis, systemic embolization; TREATMENT for venous thrombosis and/or pulmonary embolus.HIGH RISK: Target INR is 2.5-3.5 for patients with mechanical heart valves.PROTHROMBIN [id number] 12:19:00 Test Item Value Reference Range Interpretation Comments PROTIME (BEAKER) (test code = 15.8 seconds 11.9-14.2 H 759) INR (BEAKER) (test code = 370) 1.34 <=5.90 RECOMMENDED COUMADIN/WARFARIN INR THERAPY RANGESSTANDARD DOSE: 2.0 - 3.0 Includes: PROPHYLAXIS for venous thrombosis, systemic embolization; TREATMENT for venous thrombosis and/or pulmonary embolus.HIGH RISK: Target INR is 2.5-3.5 for patients with mechanical heart valves.CBC W/PLT COUNT & AUTO [id number] 12:13:43 Test Item Value Reference Range Interpretation Comments WHITE BLOOD CELL COUNT (BEAKER) 5.5 K/ L 3.5-10.5 (test code = 775) RED BLOOD CELL COUNT (BEAKER) 4.67 M/ L 4.63-6.08 (test code = 761) HEMOGLOBIN (BEAKER) (test code = 13.3 GM/DL 13.7-17.5 L 410) HEMATOCRIT (BEAKER) (test code = 39.5 % 40.1-51.0 L 411) MEAN CORPUSCULAR VOLUME (BEAKER) 85 fL 79-92 (test code = 753) MEAN CORPUSCULAR HEMOGLOBIN 28.5 pg 25.7-32.2 (BEAKER) (test code = 751) MEAN CORPUSCULAR HEMOGLOBIN CONC 33.7 GM/DL 32.3-36.5 (BEAKER) (test code = 752) RED CELL DISTRIBUTION WIDTH 13.4 % 11.6-14.4 (BEAKER) (test code = 412) PLATELET COUNT (BEAKER) (test 259 K/CU MM 150-450 code = 756) MEAN PLATELET VOLUME (BEAKER) 9.0 fL 9.4-12.4 L (test code = 754) NUCLEATED RED BLOOD CELLS 0 /100 WBC 0-0 (BEAKER) (test code = 413) NEUTROPHILS RELATIVE PERCENT 62 % (BEAKER) (test code = 429) LYMPHOCYTES RELATIVE PERCENT 20 % (BEAKER) (test code = 430) MONOCYTES RELATIVE PERCENT 12 % (BEAKER) (test code = 431) EOSINOPHILS RELATIVE PERCENT 5 % (BEAKER) (test code = 432) BASOPHILS RELATIVE PERCENT 1 % (BEAKER) (test code = 437) NEUTROPHILS ABSOLUTE COUNT 3.40 K/ L 1.78-5.38 (BEAKER) (test code = 670) LYMPHOCYTES ABSOLUTE COUNT 1.10 K/ L 1.32-3.57 L (BEAKER) (test code = 414) MONOCYTES ABSOLUTE COUNT (BEAKER) 0.63 K/ L 0.30-0.82 (test code = 415) EOSINOPHILS ABSOLUTE COUNT 0.29 K/ L 0.04-0.54 (BEAKER) (test code = 416) BASOPHILS ABSOLUTE COUNT (BEAKER) 0.05 K/ L 0.01-0.08 (test code = 417) IMMATURE GRANULOCYTES-RELATIVE 0.40 % 0.00-1.00 PERCENT (BEAKER) (test code = 2801) Urinalysis w/Microscopic + Reflex to [id number] 10:54:31 Test Item Value Reference Range Interpretation Comments Color, UA (test code Dark Red = 5778-6) Clarity, UA (test Cloudy code = 5767-9) Specific [place], UA 1.018 1.001-1.035 (test code = 5811-5) pH, UA (test code = 6.5 5.0-8.0 5803-2) Protein, UA (test 70 mg/dL Negative A code = 58579-4) Glucose, UA (test Negative Negative code = 365) Ketones, UA (test Negative Negative code = 2514-8) Bilirubin, UA (test Negative Negative code = 45547-6) Blood, UA (test code Large Negative A = 22107-2) Nitrite, UA (test Negative Negative code = 5802-4) Leukocytes, UA (test Moderate Negative A code = 5799-2) Urobilinogen, UA 0.2 0.2-1.0 (test code = 51116-0) RBC, UA (test code = See_Comment [Autom ated 48733-0) message] The system which generated this result transmitted reference range : /HPF. The reference range was not used to interpret this result as normal/abnormal . WBC, UA (test code = See_Comment [Autom ated 5821-4) message] The system which generated this result transmitted reference range : /HPF. The reference range was not used to interpret this result as normal/abnormal . Casts (test code = 278 See_Comment [Automat ed 9842-6) message] The system which generated this result transmitted reference range : /LPF. The reference range was not used to interpret this result as normal/abnormal . Specimen Source (test code = 2795) CHANEL (test code = Oncology Nurse ID - CHANEL) techOperator ID - tech Lab Interpretation Abnormal (test code = 58774-0) [facility] Culture 2023-01-14 10:54:31 Test Item Value Reference Range Interpretation Comments Color, UA (test code Dark Red = 5778-6) Clarity, UA (test Cloudy code = 5767-9) Specific [place], UA 1.018 1.001-1.035 (test code = 5811-5) pH, UA (test code = 6.5 5.0-8.0 5803-2) Protein, UA (test 70 mg/dL Negative A code = 78431-8) Glucose, UA (test Negative Negative code = 365) Ketones, UA (test Negative Negative code = 2514-8) Bilirubin, UA (test Negative Negative code = 21432-3) Blood, UA (test code Large Negative A = 03056-5) Nitrite, UA (test Negative Negative code = 5802-4) Leukocytes, UA (test Moderate Negative A code = 5799-2) Urobilinogen, UA 0.2 0.2-1.0 (test code = 65992-8) RBC, UA (test code = See_Comment [Autom ated 80832-9) message] The system which generated this result transmitted reference range : /HPF. The reference range was not used to interpret this result as normal/abnormal . WBC, UA (test code = See_Comment [Autom ated 5821-4) message] The system which generated this result transmitted reference range : /HPF. The reference range was not used to interpret this result as normal/abnormal . Casts (test code = 278 See_Comment [Automat ed 9842-6) message] The system which generated this result transmitted reference range : /LPF. The reference range was not used to interpret this result as normal/abnormal . Specimen Source (test code = 2795) CHANEL (test code = Oncology Nurse ID - CHANEL) techOperator ID - tech Lab Interpretation Abnormal (test code = 19651-4) [facility] [id number] 10:54:31 Test Item Value Reference Range Interpretation Comments COLOR (BEAKER) (test code = 470) Dark Red CLARITY (BEAKER) (test code = 469) Cloudy SPECIFIC GRAVITY UA (BEAKER) (test 1.018 1.001-1.035 code = 468) PH UA (BEAKER) (test code = 467) 6.5 5.0-8.0 PROTEIN UA (BEAKER) (test code = 70 mg/dL Negative A 464) GLUCOSE UA (BEAKER) (test code = Negative Negative 365) KETONES UA (BEAKER) (test code = Negative Negative 371) BILIRUBIN UA (BEAKER) (test code = Negative Negative 462) BLOOD UA (BEAKER) (test code = 461) Large Negative A NITRITE UA (BEAKER) (test code = Negative Negative 465) LEUKOCYTE ESTERASE UA (BEAKER) (test Moderate Negative A code = 466) UROBILINOGEN UA (BEAKER) (test code 0.2 0.2-1.0 = 463) RBC UA (BEAKER) (test code = 519) > /HPF WBC UA (BEAKER) (test code = 520) > /HPF CASTS (BEAKER) (test code = 1579) 278 /LPF SOURCE(BEAKER) (test code = 2795) Oncology Nurse ID - techOperator ID - techCT, [id number] 19:21:00Unlisted Reason for Exam - Click Yes and Enter Reason Below->NoProtocol Please Specify:->Standard ProtocolPlease specify:->Renal Stone ProtocolWill this procedure require oral contrast?->No [facility] 1960 Sex: MFINAL REPORT ABDOMINAL AND PELVIS CT DATED 01/11/2023 CLINICAL INFORMATION: Flank pain, kidney stone suspected TECHNIQUE: Axial images of the abdomen and pelvis were obtained from diaphragm to the pubic symphysis without GI or intravenous contrast. This exam was performed according to [facility], which includes automated exposure control, adjustment of the mA and/or kV according to patient size and/or use of interactive reconstruction technique. COMMENT: Liverand spleen are normal in size without focal abnormality. Gallbladder is contracted. No gallstone or b iliary dilatation is noted. Pancreas and adrenals are unremarkable. Both kidneys are normal in size.A double-J ureter stent is seen on the right. No hydronephrosis, hydroureter, urolithiasis is seen. A 1.9 x 1.4 cm cyst is seen in the mid inferior pole left kidney. Diverticular disease is seen in thelarge bowel without diverticulitis. Small bowel is normal in caliber. Appendix is not visualized. A periumbilical ventral hernia is seen with herniation a segment of the omentum. Prostate is normal in size. The urinary bladder is contracted. No mass, adenopathy or ascites is present. IMPRESSION: 1. Presence of a double-J right ureteral stents without hydronephrosis.2. Left renal cyst.3. Diverticulosis without diverticulitis.4. Periumbilical ventral hernia with herniation a segment of the omentum. Signed: Buffy Chirinos MDReport Verified Date/Time: 01/11/2023 19:21:53 PT/[id number] 18:18:44 Test Item Value Reference Range Interpretation Comments PROTIME (BEAKER) (test code = 16.2 seconds 11.9-14.2 H 759) INR (BEAKER) (test code = 370) 1.39 <=5.90 PARTIAL THROMBOPLASTIN TIME 30.1 seconds 22.5-36.0 (BEAKER) (test code = 760) RECOMMENDED COUMADIN/WARFARIN INR THERAPY RANGESSTANDARD DOSE: 2.0 - 3.0 Includes: PROPHYLAXIS for venous thrombosis, systemic embolization; TREATMENT for venous thrombosis and/or pulmonary embolus.HIGH RISK: Target INR is 2.5-3.5 for patients with mechanical heart valves.COMPREHENSIVE METABOLIC PANEL 2023-01-11 18:17:02 Test Item Value Reference Range Interpretation Comments TOTAL PROTEIN 7.2 gm/dL 6.0-8.3 (BEAKER) (test code = 770) ALBUMIN (BEAKER) 4.2 g/dL 3.5-5.0 (test code = 1145) ALKALINE 62 U/L 40-150 PHOSPHATASE (BEAKER) (test code = 346) BILIRUBIN TOTAL 0.5 mg/dL 0.2-1.2 (BEAKER) (test code = 377) SODIUM (BEAKER) 139 meq/L 136-145 (test code = 381) POTASSIUM (BEAKER) 3.9 meq/L 3.5-5.1 (test code = 379) CHLORIDE (BEAKER) 104 meq/L 98-107 (test code = 382) CO2 (BEAKER) (test 28 meq/L 22-29 code = 355) BLOOD UREA 20 mg/dL 7-21 NITROGEN (BEAKER) (test code = 354) CREATININE 1.97 mg/dL 0.57-1.25 H (BEAKER) (test code = 358) GLUCOSE RANDOM 92 mg/dL 70-105 (BEAKER) (test code = 652) CALCIUM (BEAKER) 9.1 mg/dL 8.4-10.2 (test code = 697) AST (SGOT) 23 U/L 5-34 (BEAKER) (test code = 353) ALT (SGPT) 23 U/L 6-55 (BEAKER) (test code = 347) EGFR (BEAKER) 39 Interpretatio n of eGFR (test code = 1092) mL/min/1.[address] age Description sq m Result G1 Jordana l or high >=90 G2 Mildly decreased 60-89 G3a Mildl y to moderately 45-5 9 G3b Moderately to s everely 30-44 G4 Severl y decreased 15-29 G5 Kidney failure <15Reported eGF R is based on the CKD-EPI 2020 equation that d oes not use a race coefficientEsti mated GFR is not as accur ate as Creatinine Kiana hsieh in predicting glom erular filtration rate . Estimated GFR is not appl icable for dialysis patien ts Oncology Nurse ID - BSURINALYSIS W/ REFLEX URINE [id number] 18:13:03 Test Item Value Reference Range Interpretation Comments COLOR (BEAKER) (test code = 470) Brown CLARITY (BEAKER) (test code = 469) Cloudy SPECIFIC GRAVITY UA (BEAKER) (test 1.035 1.001-1.035 code = 468) PH UA (BEAKER) (test code = 467) 6.0 5.0-8.0 PROTEIN UA (BEAKER) (test code = 300 mg/dL Negative A 464) GLUCOSE UA (BEAKER) (test code = Negative Negative 365) KETONES UA (BEAKER) (test code = Negative Negative 371) BILIRUBIN UA (BEAKER) (test code = Positive Negative A 462) BLOOD UA (BEAKER) (test code = 461) Large Negative A NITRITE UA (BEAKER) (test code = Positive Negative A 465) LEUKOCYTE ESTERASE UA (BEAKER) Negative Negative (test code = 466) UROBILINOGEN UA (BEAKER) (test code 3 0.2-1.0 H = 463) RBC UA (BEAKER) (test code = 519) > /HPF WBC UA (BEAKER) (test code = 520) 24 /HPF MUCUS (BEAKER) (test code = 1574) Many SOURCE(BEAKER) (test code = 2793) Oncology Nurse ID - [auto]Oncology Nurse ID - techCBC W/PLT COUNT & AUTO DIFFERENTIAL 2023-01-11 17:58:20 Test Item Value Reference Range Interpretation Comments WHITE BLOOD CELL COUNT (BEAKER) 8.1 K/ L 3.5-10.5 (test code = 775) RED BLOOD CELL COUNT (BEAKER) 4.86 M/ L 4.63-6.08 (test code = 761) HEMOGLOBIN (BEAKER) (test code = 14.3 GM/DL 13.7-17.5 410) HEMATOCRIT (BEAKER) (test code = 43.0 % 40.1-51.0 411) MEAN CORPUSCULAR VOLUME (BEAKER) 89 fL 79-92 (test code = 753) MEAN CORPUSCULAR HEMOGLOBIN 29.4 pg 25.7-32.2 (BEAKER) (test code = 751) MEAN CORPUSCULAR HEMOGLOBIN CONC 33.3 GM/DL 32.3-36.5 (BEAKER) (test code = 752) RED CELL DISTRIBUTION WIDTH 13.9 % 11.6-14.4 (BEAKER) (test code = 412) PLATELET COUNT (BEAKER) (test 302 K/CU MM 150-450 code = 756) MEAN PLATELET VOLUME (BEAKER) 9.4 fL 9.4-12.4 (test code = 754) NUCLEATED RED BLOOD CELLS 0 /100 WBC 0-0 (BEAKER) (test code = 413) NEUTROPHILS RELATIVE PERCENT 73 % (BEAKER) (test code = 429) LYMPHOCYTES RELATIVE PERCENT 14 % (BEAKER) (test code = 430) MONOCYTES RELATIVE PERCENT 11 % (BEAKER) (test code = 431) EOSINOPHILS RELATIVE PERCENT 2 % (BEAKER) (test code = 432) BASOPHILS RELATIVE PERCENT 0 % (BEAKER) (test code = 437) NEUTROPHILS ABSOLUTE COUNT 5.90 K/ L 1.78-5.38 H (BEAKER) (test code = 670) LYMPHOCYTES ABSOLUTE COUNT 1.10 K/ L 1.32-3.57 L (BEAKER) (test code = 414) MONOCYTES ABSOLUTE COUNT (BEAKER) 0.86 K/ L 0.30-0.82 H (test code = 415) EOSINOPHILS ABSOLUTE COUNT 0.19 K/ L 0.04-0.54 (BEAKER) (test code = 416) BASOPHILS ABSOLUTE COUNT (BEAKER) 0.03 K/ L 0.01-0.08 (test code = 417) IMMATURE GRANULOCYTES-RELATIVE 0.40 % 0.00-1.00 PERCENT (BEAKER) (test code = 2801)
[2023-03-29 14:09] LABS: Absolute Lymphocytes (CBC) 1.2 K/uL (0.7-4.9); Hematocrit 38.7 % (39.6-49.0); Lymphocytes % 23.8 % (15.3-44.8); MCV 85.7 fL (80-100); MPV 7.6 fL (7.6-11.3); Platelets 346 thou/uL (152-406); RBC Red Blood Cell Count 4.51 M/uL (4.33-5.43)
[2023-03-29 14:17] LABS: Specific Gravity 1.024 (1.005-1.030); Urine Bacteria None Seen /HPF (<20); Urine Bilirubin NEGATIVE (Negative); Urine Blood Negative (Negative); Urine Clarity Clear (Clear); Urine Color Light-Yellow (Yellow); Urine Glucose NEGATIVE (Negative); Urine Mucus Slight /HPF (None Seen); Urine Protein NEGATIVE (Negative); Urine RBC <5 /HPF (None Seen); Urine Urobilinogen Normal (Normal); Urine pH 5.5 (5.0-7.0)
[2023-03-29 14:21] LABS: Potassium 3.4 mEq/L (3.5-5.1)
--- NOTE | 2023-03-29 14:26 | RAD REPORT ---
EXAM DESCRIPTION: CT - Stone Protocol - 03/29/2023 1:51 pm CLINICAL HISTORY: FLANK PAIN COMPARISON: Stone Protocol dated 01/04/2023; Stone Protocol dated 12/31/2022; Stone Protocol dated 08/23; Stone Protocol dated 11/18/2015 TECHNIQUE: Thin cut axial CT imaging of the abdomen and pelvis was performed without IV contrast. Mu ltiplanar reformats were generated and reviewed. All CT scans are performed using dose optimization technique as appropriate and may include automated exposure control or mA/KV adjustment according to patient size. FINDINGS: No suspicious findings in the lung bases. The liver, spleen, adrenal glands, and pancreas show no suspicious findings. Gallbladder and biliary tree are also without suspicious finding. Symmetric renal contour, without suspicious parenchymal findings within limits of noncontrast techniq ue. Exophytic left renal mid pole hypoattenuating lesion suggesting a cyst, measuring 1.9 centimeter, stable. No evidence of radiopaque calculi or hydroureteronephrosis. No dilated bowel loops or bowel wall thickening. No free air, free fluid or inflammatory stranding. S mall fat containing umbilical hernia. Mild distal colonic diverticulosis. No mass or bulky lymphadeno chelle. The urinary bladder is without significant finding. Prostatomegaly. No suspicious bony findings. IMPRESSION: No acute intra-abdominal process. No evidence of hydroureteronephrosis or radiopaque c alculi. Incidental findings as above.
--- NOTE | 2023-03-29 14:45 | ER ---
Nurse's Notes [facility] Name: Ashwin Engel Age: 62 yrs Sex: Male : 1960 Arrival Date: 03/29/2023 Time: 13:36 Bed 20 Private MD: Diagnosis: Abdominal pain, unspecified Presentation: 03/29 14:09 Chief complaint: Patient states: R FLANK PAIN x3 HR. Coronavirus screen: At this time, bp the client does not indicate any symptoms associated with coronavirus-19. Ebola Screen: No symptoms or risks identified at this time. Initial Sepsis Screen: Does the patient meet any 2 criteria? No. Patient's initial sepsis screen is negative. Does the patient have a suspected source of infection? No. Patient's initial sepsis screen is negative. Risk Assessment: Do you want to hurt yourself or someone else? Patient reports no desire to harm self or others. Onset of symptoms was March 29, 2023 at 11:00. 14:09 Method Of Arrival: Ambulatory bp 14:09 Acuity: CAESAR 3 bp Triage Assessment: 14:10 General: Appears uncomfortable, Behavior is calm, cooperative, appropriate for age. bp Pain: Complains of pain in right flank. EENT: No deficits noted. Neuro: No deficits noted. Cardiovascular: No deficits noted. Respiratory: No deficits noted. GI: Reports Pain is 6 out of 10 on a pain scale. : No signs and/or symptoms were reported regarding the genitourinary system. Derm: No deficits noted. Musculoskeletal: No deficits noted. Historical: - Allergies: 14:10 No Known Allergies; bp - PMHx: 14:10 Asthma; Salazar's Palsy; colonoscopy; EGD; Factor 7; hiatal hernia; inguinal hernia; right bp knee surgery; ulnar nerve transposition; - Immunization history:: Adult Immunizations up to date. - Social history:: Smoking status: Patient denies any tobacco usage or history of. - Family history:: not pertinent. - Hospitalizations: : No recent hospitalization is reported. Screenin:11 [facility] ED Fall Risk Assessment (Adult) History of falling in the last 3 months, bp including since admission No falls in past 3 months (0 pts). Abuse screen: Denies threats or abuse. Denies injuries from another. Nutritional screening: No deficits noted. Tuberculosis screening: No symptoms or risk factors identified. Assessment: 14:11 General: SEE TRIAGE NOTE. bp 14:45 Reassessment: Patient appears in no apparent distress at this time. Patient and/or db family updated on plan of care and expected duration. Pain level reassessed. Patient is alert, oriented x 3, equal unlabored respirations, skin warm/dry/pink. Reassessment: Patient states feeling better. Patient states symptoms have improved. General: Appears in no apparent distress. comfortable, Behavior is calm, cooperative. Pain: Complains of pain in chest and right flank. Neuro: Level of Consciousness is awake, alert, obeys commands, Oriented to person, place, time, situation. Respiratory: Airway is patent Respiratory effort is even, unlabored, Respiratory pattern is regular, symmetrical. 15:01 GI: Bowel sounds present X 4 quads. Abd is soft. db Vital Signs: 14:09 BP 183 / 121; Pulse 95; Resp 16; Temp 98; Pulse Ox 98% ; bp 14:55 BP 161 / 99; Pulse 90; Resp 16; Pulse Ox 99% on R/A; db ED Course: 13:39 Patient arrived in ED. kj1 13:41 Humphrey Ennis MD is Attending Physician. rn 13:53 CT Stone Protocol In Process Unspecified. EDMS 14:02 Basic Metabolic Panel Sent. bc6 14:02 CBC with Diff Sent. bc6 14:02 Inserted saline lock: 20 gauge in right antecubital area, using aseptic technique. bc6 Blood collected. 14:10 Triage completed. bp 14:11 Arm band placed on. bp 14:11 Patient has correct armband on for positive identification. Bed in low position. Call bp light in reach. Side rails up X2. 14:45 Kati Joshi, RN is Primary Nurse. db 15:01 No provider procedures requiring assistance completed. IV discontinued, intact, db bleeding controlled, No redness/swelling at site. 15:01 Provided Education on: DISCHARGE. db Administered Medications: No medications were administered Medication: 14:11 VIS not applicable for this client. bp Outcome: 14:44 Discharge ordered by . rn 15:01 Discharged to home ambulatory. db 15:01 Condition: stable 15:01 Discharge instructions given to patient, Instructed on discharge instructions, follow up and referral plans. 15:02 Patient left the ED. db Signatures: Dispatcher [employer] EDMS Humphrey Ennis MD MD rn Cata, Kenrick, RN RN bp Alea Sam kj1 Kati Joshi RN RN db Piper You 6
--- NOTE | 2023-03-29 14:45 | EDPHYS ---
Physician Documentation [facility] Name: Ashwin Engel Age: 62 yrs Sex: Male : 1960 Arrival Date: 03/29/2023 Time: 13:36 Bed 20 Private MD: ED Physician Humphrey Ennis HPI: 03/29 14:25 This 62 yrs old Male presents to ER via Ambulatory with complaints of Possible Kidney rn Stone. 14:25 The patient complains of pain in the right mid back and right low back. The pain rn radiates to the pelvis. Onset: The symptoms/episode began/occurred today. Modifying factors: The symptoms are alleviated by nothing. the symptoms are aggravated by nothing. Associated signs and symptoms: Pertinent positives: nausea, Pertinent negatives: fever, hematuria. Severity of pain: At its worst the pain was moderate in the emergency department the pain has improved. The patient has experienced similar episodes in the past. The patient has not recently seen a physician. Historical: - Allergies: 14:10 No Known Allergies; bp - PMHx: 14:10 Asthma; Salazar's Palsy; colonoscopy; EGD; Factor 7; hiatal hernia; inguinal hernia; right bp knee surgery; ulnar nerve transposition; - Immunization history:: Adult Immunizations up to date. - Social history:: Smoking status: Patient denies any tobacco usage or history of. - Family history:: not pertinent. - Hospitalizations: : No recent hospitalization is reported. ROS: 14:25 Constitutional: Negative for fever, chills, and weight loss, Eyes: Negative for injury, rn pain, redness, and discharge, Neck: Negative for injury, pain, and swelling, Cardiovascular: Negative for chest pain, palpitations, and edema, Respiratory: Negative for shortness of breath, cough, wheezing, and pleuritic chest pain, Abdomen/GI: + nausea Back: + right flank pain MS/Extremity: Negative for injury and deformity, Skin: Negative for injury, rash, and discoloration, Neuro: Negative for headache, weakness, numbness, tingling, and seizure. Exam: 14:25 Constitutional: This is a well developed, well nourished patient who is awake, alert, rn and in no acute distress. Head/Face: Normocephalic, atraumatic. Cardiovascular: Regular rate and rhythm. No pulse deficits. Respiratory: No increased work of breathing, no retractions or nasal flaring. Abdomen/GI: soft, non-tender Back: No spinal tenderness. No costovertebral tenderness. Full range of motion. Skin: Warm, dry MS/ Extremity: Pulses equal, no cyanosis. Neuro: Awake and alert, GCS 15 Vital Signs: 14:09 BP 183 / 121; Pulse 95; Resp 16; Temp 98; Pulse Ox 98% ; bp 14:55 BP 161 / 99; Pulse 90; Resp 16; Pulse Ox 99% on R/A; db MDM: 13:41 Patient medically screened. rn 14:43 Differential diagnosis: nephrolithiasis, UTI, diverticulitis. Data reviewed: vital rn signs, nurses notes, lab test result(s), radiologic studies, CT scan, and as a result, I will discharge patient. Counseling: I had a detailed discussion with the patient and/or guardian regarding: the historical points, exam findings, and any diagnostic results supporting the discharge/admit diagnosis, lab results, radiology results, the need for outpatient follow up, to return to the emergency department if symptoms worsen or persist or if there are any questions or concerns that arise at home. Special discussion: Based on the patient's Hx, exam, and Dx evaluation, there is no indication for emergent surgery or inpatient Tx. It is understood by the patient/guardian that if the Sx's persist or worsen they need to return immediately for re-evaluation. I discussed with the patient/guardian in detail that at this point there is no indication for admission to the hospital. It is understood, however, that if the symptoms persist or worsen the patient needs to return immediately for re-evaluation. ED course: No acute findings in urine/blood/ct abdomen. Will dc home with return precautions. . 03/29 13:43 Order name: CBC with Diff; Complete Time: 14:13 rn 03/29 13:43 Order name: Basic Metabolic Panel; Complete Time: 14:21 rn 03/29 13:43 Order name: Urinalysis w/ reflexes; Complete Time: 14:21 rn 03/29 13:42 Order name: CT Stone Protocol; Complete Time: 14:39 rn 03/29 13:43 Order name: IV Start; Complete Time: 14:02 rn Administered Medications: No medications were administered Disposition Summary: 03/29/23 14:44 Discharge Ordered Location: Home rn Problem: new rn Symptoms: have improved rn Condition: Stable rn Diagnosis - Abdominal pain, unspecified rn Followup: rn - With: Private Physician - When: As needed - Reason: Recheck today's complaints, Re-evaluation by your physician Discharge Instructions: - Discharge Summary Sheet rn - Abdominal Pain, Adult rn - Flank Pain, Adult rn - Pain Without a Known Cause rn Forms: - Medication Reconciliation Form rn - Thank You Letter rn - Antibiotic video intern - Prescription Opioid Use rn - Patient Portal Instructions rn Signatures: Dispatcher [employer] Humphrey Andujar MD MD rn Peltier, Brian, RN RN bp
[2023-03-29 15:15] VITALS: TEMP 98
[2023-03-29 15:21] VITALS: BP 161/99; O2SAT 99
== END 2023-03-29 15:02 | disposition home or self-care (01) ==
LOC: ER 13:36
DX: R10.31 Right lower quadrant pain (principal)
CPT/HCPCS: 36415; 74176; 76377; 80048; 81001; 85025; 99283